=== PATIENT | male | born 1955 | race Caucasian/White ===

== ENCOUNTER 2025-01-13 02:47 | Day surgery (SDC) | payer MEDICARE, OTHER, SELFPAY ==
[2024-12-29 12:26] VITALS: BMI 28.1
--- NOTE | 2024-12-29 12:51 | PC.NURSE ---
Report to the Outpatient Waiting Room, entrance under the green pavilion located off [facility], at time ___10:00AM____ on date ____01/13/25___. Planned Procedure Time: ___12:00PM .? Time changes happen often and if your time is changed the preop area will call you the afternoon before. - You and your visitor will be asked to self-screen and do not enter if you have any COVID symptoms. Please call surgeon if you need to reschedule. - A mask is optional within the hospital at this time. Patients may have clear liquids (water, carbonated beverages, clear teas, apple juice) until 3 hours prior to surgery (9:00AM) with a maximum of 20 ounces. - No food from midnight until time of surgery and no smoking, or chewing tobacco (or any form of nicotine). No chewing gum, candy or mints. Take only the following medications with a SIP of water on the morning of surgery: ___LEVOTHYROXINE, SELEGILINE, BACTRIM DO NOT STOP ANY OF YOUR OTHER PRESCRIPTION MEDICATIONS PRIOR TO SURGERY EXCEPT THE FOLLOWING Hold all vitamins and supplements for 3 days per anesthesiologist.- LAST DOSE 01/09/25. Please no make-up, nail luxembourgish, hairspray, perfume, deodorant, or body powder the day of surgery.? No jewelry (including any body piercings) or valuables the day of surgery, leave them at home.? Please take a shower or bath the night before, or the morning of, surgery with an antibacterial soap.? Wear comfortable, loose fitting clothing.? - Jewelry must be removed prior to entering the operating room.? Rings and piercings that are not removed may be cut off. - The hospital will not accept responsibility for valuables.? - Please leave all valuables, including medications, at home the day of surgery. If you are going home after surgery, a licensed limb driver must drive you home.? - NO public transportation without another adult if you receive anesthesia. - We recommend that an adult stay with you for 24 hours following discharge. - We also recommend that you do not drive, make important decision, drink alcoholic beverages, or take any drugs that were not prescribed by your health care provider for at least 24 hours after your discharge time. Follow any additional instructions given to you from your surgeon. Telephone instructions given to ____PATIENT and asked if any additional questions and then verbalized understanding. Patient advised to call surgeon office or pre surgery nurse liaison [phone] if any additional questions.
--- NOTE | 2025-01-04 18:46 | P.HP_ITS ---
History of Present Illness History of Present Illness Consent: Risks, benefits, and alternatives have been discussed and questions answered. Patient agrees to proceed with procedure. Chief complaint: bladder stone Narrative: Dion Farooq is a 69 year old male recently evaluated for prostatism and recurrent UTI. CT-scan demonstrated 3 bladder stones up to 1.8c.m Review of Systems Review of Systems: All systems reviewed & are unremarkable except as noted in HPI and below PMFSH Social History Social History Smoking packs per day: 0.25 Smoking cigarettes per day: 5.0 Years smoked: 5 Smoking pack-years: 1.25 Smoking status: Former smoker Tobacco type: cigarettes Smoking end date: 02/22/82 Alcohol intake: current Drinks per week: 2 Living arrangements: with family Additional living arrangements comments: Spiritual care concerns: No Meds Home Medications and Allergies Home Medications ?Medication ?Instructions ?Recorded ?Confirmed ?Type ascorbic acid (vitamin C) 500 mg 500 mg PO DAILY 12/29/24 12/29/24 History capsule,extended release cholecalciferol (vitamin D3) 125 125 mcg PO DAILY 12/29/24 12/29/24 History mcg (5,000 unit) capsule cyanocobalamin (vitamin B-12) 500 500 mcg PO DAILY 12/29/24 12/29/24 History mcg tablet levothyroxine 150 mcg tablet 150 mcg PO QAM 12/29/24 12/29/24 History multivitamin (Daily Multi-Vitamin 1 tablet PO DAILY 12/29/24 12/29/24 History tablet) selegiline HCl 5 mg capsule 5 mg PO BID 12/29/24 12/29/24 History sulfamethoxazole 800 1 tablet PO Q12H 12/29/24 12/29/24 History mg-trimethoprim 160 mg tablet tamsulosin 0.4 mg capsule 0.4 mg PO BID 12/29/24 12/29/24 History Allergies Allergy/AdvReac Type Severity Reaction Status Date / Time No Known Allergies Allergy Verified 12/29/24 12:17 Exam Const: General: no acute distress Resp: Effort & Inspection: normal respiratory effort GI: Inspection: non-distended GI Palp: No abdominal tenderness and No Guarding due to palpation present (GI) Auscultation: normal bowel sounds Assessment and Plan Assessment and plan (1) BPH loc w urin obs/LUTS: Code(s): N40.1 - Benign prostatic hyperplasia with lower urinary tract symptoms Status: Acute (2) Bladder stones: Code(s): N21.0 - Calculus in bladder Status: Acute Assessment and Plan: * Cystoscopy, laser lithotripy with bladder stone extraction
[2025-01-13] VITALS (11 sets, daily range): BP systolic 109–130; BP diastolic 66–81; PULSE 55–68; RESP 10–20; TEMP 36.7–36.9; O2SAT 94–100
--- OUTSIDE RECORDS SUMMARY | 2025-01-13 02:50 | XMS_ITS | Clinical Summary ---
Author Organization [facility] Address [address] [place] [address] Care Team Providers Care Sample Preparation Supervisor Name Role Phone Tayo Ross MD Primary Care Provider [phone] Source Comments [facility],non-owned Affiliates and Associated Physician Practices is amultiple site organization consisting of ambulatory clinics and hospital sitesin [place], [place], [place] and [place]. This disclosure is being madepursuant to the Care Everywhere program and may not contain all information available regarding this patient. Last updated 18.[facility] Allergies No known active allergies Medications * Be aware that medications may not be up to date on this document. Alwaysverify current medications with the patient. tamsulosin (FLOMAX) 0.4 MG capsule Take 0.4 mg by mouth. 7 Active Multiple Vitamin (MULTIVITAMIN+ PO) Active aspirin (ASPIRIN) 81 MG tablet Take 81 mg by mouth once daily Active SHINGRIX 50 MCG/0.5ML SUSR injection PHARMACIST ADMINISTERED IMMUNIZATION ADMINISTERED AT TIME OF DISPENSING 0 9 Active carbidopa-levod opa (SINEMET) 25-100 MG tabletIndicatio ns:Parkinson's Disease Take 1 tablet by mouth 4 times daily Reasons: Parkinson's Disease 360 tablet 3 0 Active amantadine (SYMMETREL) 100 MG capsuleIndicati ons:PD (Parkinson's disease) (HCC) Take 1 capsule by mouth 2 times daily 180 capsule 3 0 Active rasagiline (AZILECT) 1 MG tabletIndicatio ns:PD (Parkinson's disease) ([facility]) Patient to take .5 tablet daily 45 tablet 3 0 Active carbidopa-levod opa CR (SINEMET CR) 50-200 MG tabletIndicatio ns:PD (Parkinson's disease) ([facility]) Take 1 tablet by mouth at bedtime 90 tablet 3 0 Active levothyroxine (SYNTHROID) 137 MCG tablet Take 137 mcg by mouth once daily 1 Active rOPINIRole (REQUIP) 0.5 MG tabletIndicatio ns:RLS (restless legs syndrome),PD (Parkinson's disease) ([facility]) Take 1 (one) tablet by mouth at bedtime 90 tablet 3 1 Active Active Problems Problem Noted Date Diagnosed Date Dyskinesia 02/19/2018 Parkinson's disease 01/21/2017 Immunizations Immunization Administration Dates Next Due Zoster Hzv Vacc Recombinant Inj Im 02/05/2019 Social History Tobacco Use Types Packs/Day Years Used Date Smoking Tobacco: Former Smokeless Tobacco: Never Alcohol Use Standard Drinks/Week Comments Yes 3 (1 standard drink = 0.6 oz pur e alcohol) Occasional beer Sex and Gender Information Value Date Recorded Sex Assigned at Not on file Legal 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 [employer] Gender Identity Not on file Sexual Orientation Not on file Last Filed Vital Signs Vital Sign Reading Time Taken Comments Blood Pressure 112/72 10/12/2020 11:07 AM SUPERVISOR DYER Pulse 81 10/12/2020 11:07 AM SUPERVISOR DYER Temperature 36.4 C (97.5 F) 10/12/2020 11:07 AM SUPERVISOR DYER Respiratory Rate - - Oxygen Saturation 98% 10/12/2020 11:07 AM SUPERVISOR DYER Inhaled Oxygen Concentration - - Weight 78.7 kg (173 lb 9.6 oz) 10/12/2020 11:07 AM SUPERVISOR DYER Height 172.7 cm (5' 8 ) 10/12/2020 11:07 AM SUPERVISOR DYER Body Mass Index 26.4 10/12/2020 11:07 AM SUPERVISOR DYER Plan of Treatment Health Maintenance Due Date Last Done Comments COLOGUARD (AGES 45-75) - COL ON CA SCREENING 1955 COLON MONITORING 1955 COLONOSCOPY - COLON CA SCREENING 1956 CT COLONOGRAPHY - COLON CA SCREENING 1955 Colorectal Cancer Screening 1955 FIT - COLON CA SCREENING 1955 FLEX SIG - COLON CA SCREENING 1955 LIPID TESTING 1955 HEPATITIS C SCREENING 11/05/1974 DTAP/TDAP/TD VACCINES (1 - Tdap) 11/10/1975 PNEUMOCOCCAL VACCINE 50+ (1 of 1 - PCV) 2006 ZOSTER VACCINE (2 of 2) 04/02/2019 02/05/2019 SCREENING FOR DIABETES 10/12/2020 AAA SCREENING 2021 COVID-19 VACCINE (1 - 2023-2 5 season) 2024 DEPRESSION SCREENING 08/25/2024 INFLUENZA VACCINE (Season Ended) 2025 Respiratory Syncytial Virus (RSV) Vaccine Pt: or over 60 yrs (1 - 1-dose 75+ series) 11/10/2031 HEPATITIS B VACCINE Aged Out No longe r eligible based on patient's age to complete this topic HIB VACCINE Aged Out No longer eligi ble based on patient's age to complete this topic HPV VACCINE Aged Out No longer eligi ble based on patient's age to complete this topic MENINGOCOCCAL (Group B) VACC INE SHARED DECISION-MAKING Aged Out No longer eligibl e based on patient's age to complete this topic MENINGOCOCCAL GROUPS A/C/Y/W VACCINE Aged Out No longer eligible b ased on patient's age to complete this topic Care Teams Sample Preparation Supervisor Relationship Specialty Start Date End Date Tayo Ross MD [address] [place] [address] PCP - General 12/20/16
--- OUTSIDE RECORDS SUMMARY | 2025-01-13 02:51 | XMS_ITS | Patient Health Record ---
Author Organization [facility] dicine Address [address] [place] [address] Care Team Providers Care Refrigerator Repair Technician Name Role Phone Dr. Leonid Ross Primary Care Provider [phone] Manuel Nair Unavailable [phone] Bindu Eastman Unavailable [phone] Migration, Provider Unavailable Unavailable Allergies No Known Allergies Results Component Value Reference Range Notes PSA, Diagnostic Reviewed date:05/13/2024 12:00:00 AM Interpretation: Performing Lab: Notes/Report: PSA Total 4.84 ng/mL T4 Free Reviewed date:05/13/2024 12:00:00 AM Interpretation: Performing Lab: Notes/Report: T4 Free 1.00 ng/dL Thyroid Stimulating Hormone Reviewed date:05/13/2024 12:00:00 AM Interpretation: Performing Lab: Notes/Report: TSH 4.08 mcIU/mL Patient Health Questionnaire (PHQ9) Reviewed date:05/12/2024 12:00:00 AM Interpretation: Performing Lab: Notes/Report: Feeling bad about yourself or that you are a failure or have let yourself or your family down 0 Feeling down, depressed, or hopeless 0 Feeling tired or having little energy 1 If you checked off any problems, how difficult Not difficult at all have these problems made it for you to do your work, take care of things at home, or get along with other people? 0 Little interest or pleasure in doing things 0 Moving or speaking so slowly that other people could have noticed or the opposite being so figety or restless that you have been moving around a lot more than usual 0 Poor appetite or overeating 0 Thoughts that you would be better off , or of hurting yourself 0 Trouble concentrating on things, such as reading the newspaper or watching television 0 Trouble falling or staying asleep, or sleeping too much 0 AUDIT-C Reviewed date:05/12/2024 12:00:00 AM Interpretation: Performing Lab: Notes/Report: How many standard drinks containing alcohol do you have on a typical day? 1 or 2 drinks How often do you have 6 or more drinks on 1 occasion Never How often do you have a drink containing alcohol Monthly or less Total Score 1 Urine Culture Reviewed date:04/05/2024 12:00:00 AM Interpretation: Performing Lab: Notes/Report: C Urine See Below Testosterone Total Reviewed date:05/13/2024 12:00:00 AM Interpretation: Performing Lab: Notes/Report: TESTOSTERONE TOTAL 343.1 ng/dL Lipid Panel {Chol, Trig, HDL , LDL} Reviewed date:05/13/2024 12:00:00 AM Interpretation: Performing Lab: Notes/Report: Chol/HDL 4 Cholesterol Total 184 mg/dL Coronary Risk 24 % HDL 45 mg/dL LDL 99 mg/dL NON HDL CHOLESTEROL 139 mg/dL Triglycerides 200 mg/dL Comprehensive Metabolic Pane l Reviewed date:05/13/2024 12:00:00 AM Interpretation: Performing Lab: Notes/Report: Albumin Lvl 4.4 g/dL Albumin/Globulin Ratio 1.7 Alk Phos 94 unit/L ALT 14 unit/L ANION GAP 5.6 mmol/L AST 16 unit/L Bilirubin Total 0.9 mg/dL BUN 18 mg/dL Calcium Lvl 9.4 mg/dL Chloride Lvl 106 mmol/L CO2 29 mmol/L Creatinine Lvl 1.06 mg/dL eGFR CKD-EPI 77 mL/min/1.73 m2 Glucose Lvl 88 mg/dL Potassium Lvl 4.3 mmol/L Protein Total 7.0 g/dL Sodium Lvl 141 mmol/L CBC w/ Diff Reviewed date:05/13/2024 12:00:00 AM Interpretation: Performing Lab: Notes/Report: Basophil Auto 0.5 % Eos Absolute 0.2 x10*3/mcL Eosinophil Auto 3.3 % Hct 43.7 % Hgb 14.9 g/dL Lymph Absolute 2.2 x10*3/mcL Lymph Auto 33.8 % MCH 33.3 pg MCHC 34.2 g/dL MCV 97.5 fL [place] Absolute 0.4 x10*3/mcL [place] Auto 6.5 % MPV 9.9 fL Neutro Absolute 3.7 x10*3/mcL Neutro Auto 55.9 % Platelets 203 K/mcL RBC 4.48 x10*6/mcL RDW 12.3 % WBC 6.6 K/mcL Thyroid Stimulating Hormone Reviewed date:11/03/2024 02:33:10 PM Interpretation: Performing Lab: Notes/Report: Test Performed by: [address] [address] [employer] Lecturer: Herminio Duvall DO TSH 1.76 0.45-5.33 mcIU/mL CBC w Auto Diff Reviewed date:11/03/2024 02:33:10 PM Interpretation: Performing Lab: Notes/Report: Test Performed by: [address] [id number] [employer] Lecturer: Herminio Duvall DO WBC 4.9 4.0-11.7 K/mcL RBC 4.61 4.28-5.56 x10*6/mcL Hgb 15.2 13.0-17.0 g/dL Hct 43.9 38.1-48.9 % MCV 95.3 83.4-98.1 fL MCH 33.0 27.0-34.2 pg MCHC 34.6 31.8-35.3 g/dL RDW 12.9 12.0-16.4 % Platelets 236 149-393 K/mcL MPV 9.4 7.0-11.0 fL Neutro Auto 51.6 45.3-79.0 % Lymph Auto 38.2 11.8-45.9 % [place] Auto 7.1 4.4-12.0 % Eosinophil Auto 2.3 0.0-6.3 % Basophil Auto 0.8 0.2-1.6 % Neutro Absolute 2.5 2.4-8.4 x10*3/mcL Lymph Absolute 1.9 0.8-3.7 x10*3/mcL [place] Absolute 0.3 0.3-1.1 x10*3/mcL Eos Absolute 0.1 0.0-0.5 x10*3/mcL Vitamin B12 Reviewed date:11/03/2024 02:33:10 PM Interpretation: Performing Lab: Notes/Report: Test Performed by: [address] [place] [address] [employer] Lecturer: Herminio Duvall DO Vitamin B12 Lvl 776 180-914 pg/mL Vitamin B12 Interpretation: Normal Range: 180-914 pg/mL Indeterminate: 140-180 pg/mL Deficient: <140 pg/mL Comprehensive Metabolic Pane l Reviewed date:11/03/2024 02:33:10 PM Interpretation: Performing Lab: Notes/Report: Test Performed by: Lorraine Jason [place] [id number] [employer] Lecturer: Herminio Duvall DO Glucose Lvl 98 74-109 mg/dL ADA risk stratification for diabetes <100 mg/dL = Normal 100-125 mg/dL = Increased risk for future diabetes >=126 mg/dL = Diabetes, if on more than one testing occasion BUN 18 7-25 mg/dL Creatinine Lvl 0.87 0.70-1.30 mg/dL eGFR CKD-EPI >90 >=90 mL/min/1.73 m2 The CKD-EPI equation is validated in individuals 18 years of age and older. It is less accurate in patients with extremes of muscle mass, restriction of dietary protein, ingestion of creatine, extra-renal metabolism of creatinine, or treatment with medications that affect renal tubular creatinine secretion. GFR Categories in Chronic Kidney Disease (CKD) GFR GFR (mL/min/1.73 Category: square meters): Interpretation: G1 90 or greater Normal or high* G2 60-89 Mild decrease* G3a 45-59 Mild to moderate decrease G3b 30-44 Moderate to severe decrease G4 15-29 Severe decrease G5 14 or less Kidney failure *In the absence of evidence of kidney damage, neither GFR category G1 nor G2 fulfill the criteria for CKD (Kidney Int Suppl 2013;3:1-150) Calcium Lvl 9.1 8.6-10.3 mg/dL Sodium Lvl 140 136-145 mmol/L Potassium Lvl 4.4 3.5-5.1 mmol/L Chloride Lvl 105 98-107 mmol/L CO2 28 21-31 mmol/L Anion Gap 6.5 <=16.0 mmol/L Alk Phos 81 34-104 unit/L Bilirubin Total 0.6 0.3-1.0 mg/dL Albumin Lvl 4.2 3.5-5.2 g/dL Protein Total 6.6 6.4-8.9 g/dL Albumin/Globulin Ratio 1.8 1.1-2.5 ALT 13 7-52 unit/L AST 14 13-39 unit/L T4 Free Reviewed date:11/03/2024 02:33:10 PM Interpretation: Performing Lab: Notes/Report: Test Performed by: [place] [address] [employer] Lecturer: Herminio Duvall DO T4 Free 1.13 0.60-1.70 ng/dL Vitamin D 25 Hydroxy Reviewed date:11/03/2024 02:33:10 PM Interpretation: Performing Lab: Notes/Report: Test Performed by: [place] [address] [employer] Lecturer: Herminio Duvall DO Vitamin D 25 OH 70 30-100 ng/mL Vitamin D25 Interpretation: Deficient: <= 20 ng/mL Insufficient: 21-29 ng/mL Sufficient: 30-100 ng/mL Upper Safety Limit: >100 ng/mL Erythrocyte Sedimentation Ra te Reviewed date:11/10/2024 08:07:37 AM Interpretation: Performing Lab: Notes/Report: Test Performed by: [place] [address] [employer] Lecturer: Herminio Duvall DO ESR, Westergren 2 0-20 mm/hr C-Reactive Protein Reviewed date:11/10/2024 08:07:37 AM Interpretation: Performing Lab: Notes/Report: add on Test Performed by: [place] [address] [employer] Lecturer: Herminio Duvall DO CRP <0.1 0.0-1.0 mg/dL Reason For Referral Reason referral to urology- closest location possible. Diagnosis 1 Benign prostatic hyp erplasia with lower urinary tract symptoms, symptom details unspecified (N40.1) Referral Organization [facility] Referring Provider First Name Bindu Referring Provider Last Name Jaren Referring Provider Speciality Nurse Prac titioner Referred Provider Specialty Urology General Notes Kandis Smith 1 10/21/2023 02:32:30 PM MEDICAL PSYCHOTHERAPIST >Faxed referral to Urology of [facility] [phone], Kristy Feldman 09/14/2024 09:20:59 AM MEDICAL PSYCHOTHERAPIST >Called to f/u and spoke with concierge receptionist. Stated they had the referral and their staff had reached out once with a disconnection, but no new attempt. Inquired what phone number they were using and she couldn't find the number and stated they might be working on an old number from previous visits in 2018. Updated with home number and cell phone number. They stated they would attempt to reach out again today. Attempted to call Manfred and no answer. Attempted home number, disconnected. Called Mita and updated her. V/u stated that they didn't have good luck with Luis. Updated that there are other providers that she can request. v/u. Given phone number to call if Manfred doesn't hear from them today. P: [phone].Nelson Brooke 11/11/2024 09:03:46 AM CDT >Pt is seeing urology in November Referral Priority Routine Referral Appointment Date 08/08/2024 Medications Medication SIG (Take, Route, Frequency, Duration) Notes Start Date End Date Status Sertraline HCl 25 MG Tablet 1 tablet Orally Once a day managed by [facility] neuro Active Finasteride 5 MG Tablet 1 tablet Orally Once a day Unknown Carbidopa-Levodopa 25-100 MG Tablet 1 Oral twice a day; Duration: 30 days managed by [facility] neuro managed by [facility] neuro Active Levothyroxine Sodium 150 MCG Tablet 1 tablet in the morning on an empty stomach Orally Once a day; Duration: 90 days Unknown Multivitamin oral; Duration: 0 *Pick strength-form from [facility] for eRX* 01/16/2021 Unknown Selegiline HCl 5 MG Tablet 1 tablet with breakfast and lunch Orally Twice a day Unknown Tamsulosin HCl 0.4 MG Capsule 1 capsule Orally twice a day; Duration: 30 days Unknown Immunizations Vaccine Route Administration Date Status Comme nts Zoster IM Intramuscular 02/05/2019 Administered Source VFC Code: : Zoster IM Intramuscular 05/04/2019 Administered Source VFC Code: : Tdap IM Intramuscular 02/16/2018 Administered Source VFC Code: : RSV-MAb (Respiratory syncytial virus immune globulin) IM Intramuscular 05/12/2024 Administered ,sourcename : New immunization record ,immstatus : Complete Moderna Covid-19 Vaccine 1st dose Unknown 11/08/2020 Administered ,sourcename : New immunization record Source VFC Code: : Moderna Covid-19 Vaccine 1st dose Unknown 12/09/2020 Administered ,sourcename : New immunization record Source VFC Code: : Moderna Covid-19 Vaccine 1st dose Unknown 07/24/2021 Administered Source VFC Code: : Modernmorgan Covid-19 Vaccine 1st dose Unknown 12/17/2021 Administered Source VFC Code: : Influenza, high-dose seasonal, quadrivalent, preservative free >65 yrs IM Intramuscular 06/06/2023 Administered ,sourcename : N ew immunization record ,immstatus : Complete Social History Social History Additional Details Category Social Info Options Details Migrated Social History Migrated Social History Tobacco history:Never smoker Problems Problem Type SNOMED Code ICD Code Onset Dates Problem Status W/U Status Risk Notes Problem Suspected disease caused by Severe acute respiratory coronavirus 2 (situation) (786189072) Encounter for screening for COVID-19 (Z11.52) 022 Problem resolved confirmed Problem Closed fracture of acromial end of clavicle (8698837) Displaced fracture of lateral end of right clavicle, initial encounter for closed fracture (S42.031A) 023 Problem resolved confirmed Problem Xerosis cutis (22965515) Xerosis cutis (L85.3) 017 Problem resolved confirmed Problem Acute upper respiratory infection (50899786) Acute upper respiratory infection, unspecified (J06.9) 017 Problem resolved confirmed Problem Prostatitis (2355144) Unspecified prostatitis (601.9) 016 Problem resolved confirmed Problem Acute bronchitis (19749456) Acute bronchitis (466.0) 017 Problem resolved confirmed Problem Acute sinusitis (disorder) (50806686) Other acute sinusitis (461.8) 017 Problem resolved confirmed Problem Otorrhea (10663940) Unspecified otorrhea (388.60) 017 Problem resolved confirmed Problem Hyperlipidemia (60497885) Other and unspecified hyperlipidemia (272.4) 016 Problem resolved confirmed Problem Neoplasm of uncertain behavior of skin (73103144) Neoplasm of uncertain behavior of skin (238.2) 019 Problem resolved confirmed Problem Dermatophytosis of nail (671679091) Dermatophytosis of nail (110.1) 017 Problem resolved confirmed Problem Body mass index 25-29 - overweight (040457611) Body mass index (BMI) 28.0-28.9, adult (Z68.28) Active confirmed Problem Elevated PSA (752813618) Elevated prostate specific antigen [PSA] (R97.20) Active confirmed Problem Difficulty passing urine (135412624) Other difficulties with micturition (R39.198) Active confirmed Problem Vaccination given (914457177) Encounter for immunization (Z23) Active confirmed Problem Adult health examination (699475278) Encounter for general adult medical examination without abnormal findings (Z00.00) Active confirmed Problem Urinary tract infectious disease (disorder) (29852427) Urinary tract infection, site not specified (N39.0) Active confirmed Problem Arthralgia of the ankle and/or foot (520574491) Pain in left ankle and joints of left foot (M25.572) Active confirmed Problem Cholelithiasis without obstruction (20342589) Calculus of gallbladder without cholecystitis without obstruction (K80.20) Active confirmed Problem Diverticula of intestine (22790396) Diverticulosis of intestine, part unspecified, without perforation or abscess without bleeding (K57.90) Active confirmed Problem Parkinson's disease (19691444) Parkinson's disease (G20) Active confirmed Problem Hypothyroidism (16304572) Hypothyroidism, unspecified (E03.9) Active confirmed Problem Leukopenia (45785005) Decreased white blood cell count, unspecified (D72.819) Active confirmed Problem Lower urinary tract symptoms due to benign prostatic hypertrophy (78469848299415) Benign prostatic hyperplasia with lower urinary tract symptoms, symptom details unspecified (N40.1) Active confirmed Problem Benign prostatic hypertrophy without outflow obstruction (544417260) Benign prostatic hyperplasia without lower urinary tract symptoms (N40.0) Active confirmed Problem Acute prostatitis (79533460) Acute prostatitis (N41.0) Active confirmed Problem Nicotine dependence (26652050) Personal history of nicotine dependence (Z87.891) 022 Problem resolved confirmed Problem Viral screening (576810115) Encounter for screening for other viral diseases (Z11.59) 022 Problem resolved confirmed Problem History and physical examination, follow-up (477513498) Encounter for follow-up examination after completed treatment for conditions other than malignant neoplasm (Z09) 023 Problem resolved confirmed Problem Other specified symptoms and signs involving the circulatory and respiratory systems (R09.89) 017 Problem resolved confirmed Problem Low back pain (890596963) Low back pain (M54.5) 021 Problem resolved confirmed Problem Pain of right knee region (finding) (185211293817675) Pain in right knee (M25.561) 017 Problem resolved confirmed Problem Seborrheic dermatitis (96140477) Other seborrheic dermatitis (L21.8) 017 Problem resolved confirmed Problem Acute bronchitis (13247598) Acute bronchitis, unspecified (J20.9) 017 Problem resolved confirmed Problem Acute pansinusitis (4996193) Acute pansinusitis, unspecified (J01.40) 017 Problem resolved confirmed Problem Mixed hyperlipidemia (022495759) Mixed hyperlipidemia (E78.2) 016 Problem resolved confirmed Problem Neoplasm of uncertain behavior of skin (57534225) Neoplasm of uncertain behavior of skin (D48.5) 019 Problem resolved confirmed Problem Tinea unguium (201029699) Tinea unguium (B35.1) 017 Problem resolved confirmed Problem Vaccine product containing only acellular Bordetella pertussis and Clostridium tetani and Corynebacterium diphtheriae antigens (medicinal product) (294499311) Diphtheria-tetanus- pertussis, combined [DTP] [DtaP] (V06.1) 018 Problem resolved confirmed Problem Requires varicella vaccination (finding) (220611250) Need for prophylactic vaccination and inoculation against varicella (V05.4) 019 Problem resolved confirmed Problem Pneumococcal conjugate vaccination (376708808517670) Need for prophylactic vaccination against streptococcus pneumoniae (pneumococcus) (V03.82) 019 Problem resolved confirmed Problem Cough (30690783) Cough (786.2) Problem resolved confirmed Problem Seborrheic dermatitis (33681442) Other seborrheic dermatitis (690.18) Problem resolved confirmed Problem Body mass index 30.00 to 34.99 (264848327434815) Body mass index (BMI) 31.0-31.9, adult (Z68.31) Active confirmed Problem Chronic cough (81721310) Chronic cough (R05.3) Active confirmed Problem Lipid screening (362415098) Encounter for screening for lipoid disorders (Z13.220) Active confirmed Problem Pre-procedure evaluation check (338760641) Encounter for other preprocedural examination (Z01.818) Active confirmed Problem Problem, abnormal examination (49400251) Encounter for general adult medical examination with abnormal findings (Z00.01) Active confirmed Problem Other mechanical complication of other internal orthopedic devices, implants and grafts, initial encounter (T84.498A) Active confirmed Problem Motion sickness (87235296) Motion sickness, initial encounter (T75.3XXA) Active confirmed Problem Sprain of ankle (57520218) Sprain of unspecified ligament of left ankle, initial encounter (S93.402A) Active confirmed Problem Electrocardiogram abnormal (717950028) Abnormal electrocardiogram [ECG] [EKG] (R94.31) Active confirmed Problem Hematuria (82777582) Hematuria, unspecified (R31.9) Active confirmed Problem Flatulence, eructation and gas pain (409824729) Abdominal distension (gaseous) (R14.0) Active confirmed Problem Abdominal pain (67900407) Unspecified abdominal pain (R10.9) Active confirmed Problem Pleurodynia (4307122) Pleurodynia (R07.81) Active confirmed Problem Erectile dysfunction (disorder) (520228147) Male erectile dysfunction, unspecified (N52.9) 022 Active confirmed Problem Prostatitis (7148911) Inflammatory disease of prostate, unspecified (N41.9) 024 Active confirmed Problem Constipation (63460529) Constipation, unspecified (K59.00) 021 Active confirmed Problem Sepsis due to unspecified staphylococcus (A41.2) 023 Active confirmed Problem Abnormal chest sounds (41569136695605) Abnormal chest sounds (786.7) 017 Problem resolved confirmed Problem Body mass index 25-29 - overweight (860262506) Body mass index (BMI) 27.0-27.9, adult (Z68.27) 023 Active confirmed Problem Cough (finding) (64597625) Cough, unspecified (R05.9) 023 Active confirmed Problem Acne scars - mixed atrophic and hypertrophic (804710388) Other specified hypertrophic and atrophic condition of skin (701.8) 017 Problem resolved confirmed Vital Signs Heart Rate 81 /min 11/02/2024 Temperature 97.9 degrees Fahrenheit 11/02/2024 Respiratory Rate 16 /min 07/02/2024 Height-cm 165.1 cm 11/02/2024 Oximetry 97 % 11/02/2024 Blood pressure diastolic 68 mm Hg 11/02/2024 Weight-kg 86.55 kg 11/02/2024 Height 65.00 in 11/02/2024 Blood pressure systolic 118 mm Hg 11/02/2024 Weight 190.8 lbs 11/02/2024 BMI 31.75 kg/m2 11/02/2024 Encounters Encounter Location Date Provider Diagnosis [address] [address] 01/28/2024 Manuel Joanie Calculus of gallbladder without cholecystitis without obstruction K80.20 and Unspecified abdominal pain R10.[address] [address] 03/16/2024 Dr. Leonid Ross Unspecified abdomina l pain R10.[address] [address] 03/30/2024 Provider Migration Urinary tract infection, site not specified N39.0 and Hematuria, unspecified R31.[address] [address] 04/01/2024 Provider Migration Inflammatory disease of prostate, unspecified N41.[address] [address] 04/22/2024 Dr. Leonid Ross [address] [address] 04/23/2024 Provider Migration Parkinson's disease G20 ; Male erectile dysfunction, unspecified N52.9 ; Elevated prostate specific antigen [PSA] R97.20 ; Inflammatory disease of prostate, unspecified N41.9 ; Encounter for screening for lipoid disorders Z13.220 and Hypothyroidism, unspecified E03.[address] [address] 05/03/2024 Dr. Leonid Ross Pleurodynia R07.[address] [address] 05/12/2024 Manuel Nair Elevated prostate specific antigen [PSA] R97.20 ; Encounter for general adult medical examination without abnormal findings Z00.00 ; Hypothyroidism, unspecified E03.9 ; Sepsis due to unspecified staphylococcus A41.2 ; Other mechanical complication of other internal orthopedic devices, implants and grafts, initial encounter T84.498A ; Parkinson's disease G20 and Body mass index (BMI) 31.0-31.9, adult Z68.[address] [address] 07/02/2024 Manuel Nair Inflammatory disease of prostate, unspecified N41.[address] [address] 09/14/2024 Dr. Leonid Ross Superficial laceration T14.8XXA and Benign prostatic hyperplasia with lower urinary tract symptoms, symptom details unspecified N40.[address] [address] 11/02/2024 Manuel Nair Hypothyroidism, unspecified E03.9 ; Parkinson's disease with fluctuating manifestations, unspecified whether dyskinesia present G20.A2 ; Low energy R53.83 ; Other fatigue R53.83 and moth exterminator use of drug Z79.[address] [address] 07/24/2024 Provider Migration [address] [address] 07/25/2024 Provider Migration [address] [address] 08/08/2024 Bindu Jaren Acute prostatitis N41.0 ; Benign prostatic hyperplasia with lower urinary tract symptoms, symptom details unspecified N40.1 and Elevated prostate specific antigen [PSA] R97.[address] [address] 11/03/2024 [facility] Other fatigue R53.[address] [address] 11/03/[address] [address] 11/10/[address] [address] 11/11/2024 Dr. Leonid Ross Assessments Encounter Date Diagnosis (ICD Code) Assessment Notes Treatment Notes Treatment Clinical Notes Section Notes 11/03/2024 Other fatigue (ICD-10 - R53.83) 11/02/2024 Hypothyroidism, unspecified (ICD-10 - E03.9) 09/14/2024 Superficial laceration (ICD-10 - T14.8XXA) 08/08/2024 Acute prostatitis (ICD-10 - N41.0) 11/02/2024 Parkinson's disease with fluctuating manifestations, unspecified whether dyskinesia present (ICD-10 - G20.A2) 08/08/2024 Benign prostatic hyperplasia with lower urinary tract symptoms, symptom details unspecified (ICD-10 - N40.1) 07/02/2024 Inflammatory disease of prostate, unspecified (ICD-10 - N41.9) 05/12/2024 Sepsis due to unspecified staphylococcus (ICD-10 - A41.2) 05/12/2024 Hypothyroidism, unspecified (ICD-10 - E03.9) 05/12/2024 Parkinson's disease (ICD-10 - G20) 05/12/2024 Other mechanical complication of other internal orthopedic devices, implants and grafts, initial encounter (ICD-10 - T84.498A) 05/12/2024 Encounter for general adult medical examination without abnormal findings (ICD-10 - Z00.00) 05/12/2024 Elevated prostate specific antigen [PSA] (ICD-10 - R97.20) 05/12/2024 Body mass index (BMI) 31.0-31.9, adult (ICD-10 - Z68.31) 05/03/2024 Pleurodynia (ICD-10 - R07.81) 04/23/2024 Hypothyroidism, unspecified (ICD-10 - E03.9) 04/23/2024 Parkinson's disease (ICD-10 - G20) 04/23/2024 Inflammatory disease of prostate, unspecified (ICD-10 - N41.9) 04/23/2024 Male erectile dysfunction, unspecified (ICD-10 - N52.9) 04/23/2024 Encounter for screening for lipoid disorders (ICD-10 - Z13.220) 04/23/2024 Elevated prostate specific antigen [PSA] (ICD-10 - R97.20) 04/01/2024 Inflammatory disease of prostate, unspecified (ICD-10 - N41.9) 03/30/2024 Urinary tract infection, site not specified (ICD-10 - N39.0) 03/30/2024 Hematuria, unspecified (ICD-10 - R31.9) 03/16/2024 Unspecified abdominal pain (ICD-10 - R10.9) 01/28/2024 Calculus of gallbladder without cholecystitis without obstruction (ICD-10 - K80.20) 01/28/2024 Unspecified abdominal pain (ICD-10 - R10.9) 11/02/2024 Low energy (ICD-10 - R53.83) 09/14/2024 Benign prostatic hyperplasia with lower urinary tract symptoms, symptom details unspecified (ICD-10 - N40.1) 08/08/2024 Elevated prostate specific antigen [PSA] (ICD-10 - R97.20) 11/02/2024 Other fatigue (ICD-10 - R53.83) Checking labs like vit D and B12 for deficiency causing the fatigue but concern that it could be progression of parkinsons. Will discuss further based on eval by neuro and labs completed today. Checking TSH. Neuro to evaluate for progression of parkinsons and effectiveness of DBS. Sleep study not indicated at this time. I do not recommend modafinil at this time but may consider based on further evaluation. 11/02/2024 FDC use of drug (ICD-10 - Z79.899) Plan Of Treatment Pending Test Test Name Order Date Vitamin B12 11/02/2024 Thyroxine (T4) Free, Direct, S 5 TSH 11/02/2024 CBC With Differential/Platelet 5 Vitamin D, 25-Hydroxy 11/02/2024 Comp. Metabolic Panel (14) 11/02/2024 C-Reactive Protein 11/03/2024 Erythrocyte Sedimentation Rate 5 Next Appt Details Provider Name:Manuel Rhodes [facility], 05/17/2025 01:30:00 PM, [address] [facility], [place], [address], [phone] Insurance Providers Payer Name Payer Address Payer Phone Subscriber Number Group Number Insured Name Patient Relationship to Insured Coverage Start Date Coverage End Date NGS Medicare RHC [address] [place] [address] [id number] Dion Palacios Self - patient is the insured 2 [facility] [address] [facility] [address] [id number] Dion Palacios Self - patient is the insured 2 NGS Medicare B [address] [place] [address] [id number] Dion Palacios Self - patient is the insured 2 Medical (General) History Surgical History Surgery Date(Month/Year) Cardiovascular stress test u sing maximal or submaximal treadmill or bicycle exercise, continuous edel 12/22/2015 Colonoscopy ,notes : rectal poylp remove d repeat 3-5 years 01/28/2012 Cystoscopy ,notes : Dr. Arellano 05/31/20 22 [email or web address] ,notes : [place] roscopic farhat with cholangiogram. Post op dx: chronic calculous cholecystitis. Completed by Dr. Hicks. 02/05/24
--- OUTSIDE RECORDS SUMMARY | 2025-01-13 02:52 | XMS_ITS | Data Portability ---
Author Organization [place] [facility] Address [address] [place] [address] Care Team Providers Care Cryptographic Clerk Name Role Phone ANGEL SINCLAIR Primary Care Provider Assessment No assessment recorded. Plan of Treatment Reminders Order Date Submit Date Provider Last Modified By Organization Details Last Modified Time Details Appointments None recorded. Lab None recorded. Referral occupation al therapist referral - [facility] for strengthen ing exercises 2022 023 [facility] Physical Therapy[address] , [place], [address], 3 09:30:33 occupation al therapist referral 2022 023 [facility] Physical [address] , [place], [address], 3 09:35:17 Procedures None recorded. Surgeries None recorded. Imaging None recorded. Medication Orders None recorded. Patient TargetsNo targets recorded. Patient Instructions Encounter Date Encounter Id Patient Instructions Last Modified By Organization Details Last Modified Time 07/24/2022 [id number] I discussed with Dion and his that if this fracture remains in the position it is in, I do not see a need for surgical intervention. I want him to use the sling for comfort as well as protection when out in public. I did express to him that I do want him to start coming out of the sling and working on very gentle motion of the wrist and elbow. He will need to be very careful over the next couple of months while this bone is knitting together as there is not anyway to place a cast. He was shown how to do exercises in clinic today. He can eat and drink with this arm but no weight in this extremity more than a drink or utensils. He voices understanding. He was given hydrocodone at the ER but it made him feel funny so he has just been taking OTC Tylenol with benefit. Sleeping in a recliner may be more comfortable for him at first as well. This will keep him from rolling over on this side. He can ice as needed to help with any swelling. He understands that it will be a couple of months before this bone has formed a good amount of callus. It will be two to three months before he is able to return to overhead type activities. I will see him back in approximately six weeks with repeat radiographs. He is asking about returning to a boxing bag program but I have informed him this will be approximately three months out before being able to wean back into that activity. [email or web address] Not available 07/24/2022 09:32:50 09/04/2022 [id number] I discussed with Dion that he is doing well following his fracture. I want him to start some formal physical therapy working on range of motion exercises. He said he wants to do this at [facility] here in [place] so I will fax the order over to them. I would like to see some more healing changes on the x-rays before we add any strengthening so I want to see him back in 6 weeks to check another set of images as well as see how he is doing with his range of motion. At that point if he is progressing well we can add some strengthening. He was instructed to call with any questions or concerns. He voiced understanding and agreed with this plan of care. Patient was seen by Gonzales Segundo NP, and the diagnoses, problems and treatment plan for the patient has been reviewed and approved by me, Dr. Elder Garcia. Not available 09/06/2022 09:30:57 10/16/2022 [id number] I discussed with Dion and his that he is doing well following his clavicle fracture. He has improved since his last visit by attending PT and working on exercises at home. At this point he is ready to do some strengthening, so I will send an order for therapy to do a HEP to show him the exercises he can do for this. I am going to release him to activities as tolerated, letting pain be his guide. I told him that as he starts using that arm more, he can take OTC pain medication as needed as well as use ice. I am going to follow up with him on a PRN basis. He was instructed to call with any questions or concerns. He voiced understanding and agreed with this plan of care. Patient was seen by Gonzales Segundo NP, and the diagnoses, problems and treatment plan for the patient has been reviewed and approved by me, Dr. Elder Garcia. Not available 10/16/2022 10:07:50 Reason for Referral Occupational Therapist Refer ral for Closed fracture of acromial end of right clavicle Referring Physician: Elder Garcia, Orthopedic Surgery, Encounter Date: 09/04/2022 Occupational Therapist Refer ral for Closed fracture of acromial end of clavicle HEP for strengthening exercises Referring Physician: Elder Garcia, Orthopedic Surgery, Encounter Date: 10/16/2022 Results Created Date Observation Date Name Description Value Unit Range Abnormal Flag Note LastModifiedBy Organization Detail LastModifiedTime 09/04/19 23 09/04/2022 XR, clavi tam No observ ation record ed. [email or web address] [address] [place], [address], 09/04/2022 18:36:30 10/16/19 23 10/16/2022 XR, clavi tam No observ ation record ed. [email or web address] [address] [place], [address], 10/17/2022 15:37:39 Result Notes None recorded. Problems Name Problem SNOMED Code Status Onset Date Resolution Date Notes Provider Name and Address Organization Details Recorded Time Parkinson 's disease 95182380 Active 2021 javi damon null, [place] - [facility] 2 13:08:48 Closed fracture of acromial end of right clavicle 933247362215965 06 Active 2021 Cinthia Merida null, [place] - [facility] 2 09:25:57 Clavicle pain 995296309 Active 2021 Cinthia Merida [place], [place] [facility] 2 09:26:23 Closed fracture of acromial end of clavicle 6330907 Active 2022 GONZALES SEGUNDO, ELECTROSTATIC PAINTER [address] [facility] [place], [address], [place] [facility] 09:29:09 Problem Notes None recorded. Procedures Surgical History Date Name Laterality Status Provider Name and Address Organization Details Recorded Time deep brain stimulation completed javi damon [place] [facility] 07/23/2022 13:12:48 Imaging Results Imaging Date Name Status LastModified by Organiz ation Details LastModified Time 09/04/2022 XR, clavicle completed [email or web address] [facility] [address], [place], [address], 09/04/2022 18:36:30 10/16/2022 XR, clavicle completed [email or web address] [facility] [address], [place], [address], 10/17/2022 15:37:39 Procedure Notes None recorded. Medical Equipment None Reported. Allergies No known drug allergies Medications Name Sig Start Date Stop Date Status Note LastModified by Organization Details LastModified Time levothyroxine 137 mcg tablet TAKE 1 TABLET BY MOUTH IN THE MORNING active Not Available Not Available No t Available hydrocodone 5 mg-acetaminop hen 325 mg tablet TAKE 1 TABLET BY MOUTH EVERY 6 HOURS NEEDED FOR PAIN active not taking Not Available Not Available Not Available carbidopa ER 50 mg-levodopa 200 mg tablet,extend ed release TAKE 1 TABLET BY MOUTH TWICE DAILY active Not Available Not Available No t Available ciprofloxacin 250 mg tablet active not taking Not Available Not Available Not Available amantadine HCl 100 mg capsule active not taking Not Available Not Available Not Available ketorolac 0.5 % eye drops active not taking Not Available Not Available Not Available entacapone 200 mg tablet TAKE 1 TABLET BY MOUTH 4 TIMES DAILY NEEDED active not taking Not Available Not Available Not Available prednisolone acetate 1 % eye drops,suspens ion active not taking Not Available Not Available Not Available tamsulosin 0.4 mg capsule active Not Available Not Available Not Available ciprofloxacin 0.3 % eye drops active NOT TAKING Not Available Not Available Not Available carbidopa 25 mg-levodopa 100 mg tablet TAKE 1 TABLET BY MOUTH 4 TIMES DAILY. FIFTH DOSE DAILY NEEDED active TID Not Available Not Available No t Available tadalafil 5 mg tablet active Not Available Not Available No t Available Myrbetriq 50 mg tablet,extend ed release active not taking Not Available Not Available Not Available Vitals Date Recorded Body height Body mass index (BMI) Body weight Heart rate Systolic blood pressure Diastolic blood pressure Provider Name and Address Organization Details Last Updated DateTime 2 172.72 cm 27 kg/m2 09859 g 78 /min 114 mm[Hg] 62 mm[Hg] Ericka Kaur [place] [facility] 09:02:17 Date Recorded Body height Body mass index (BMI) Body weight Heart rate Systolic blood pressure Diastolic blood pressure Provider Name and Address Organization Details Last Updated DateTime 3 172.72 cm 26.6 kg/m2 53165.6 6 g 73 /min 100 mm[Hg] 66 mm[Hg] Cinthia Merida [place] [facility] 3 09:09:08 Date Recorded Body height Body mass index (BMI) Body weight Heart rate Systolic blood pressure Diastolic blood pressure Provider Name and Address Organization Details Last Updated DateTime 3 172.72 cm 27.9 kg/m2 51641.8 4 g 72 /min 120 mm[Hg] 72 mm[Hg] Ericka Kaur [place] [facility] 3 08:56:35 Social History Question Answer Notes LastModified by Organizat ion Details LastModified Time Tobacco Smoking Status Never Smoker javi dickinson [place] [facility] 07/23/2022 13:12:19 Do You Have An Advance Directive? No [email or web address] Information n ot available 07/23/2022 Are You Blind Or Do You Have Difficulty Seeing? No Information n ot available 07/23/2022 Is Blood Transfusion Acceptable In An Emergency? Yes Information not available 07/23/2022 What Is Your Level Of Caffeine Consumption? Moderate [email or web address] Information not available 07/23/2022 In The 14 Days Before Symptom Onset, Have You Had Close Contact With A Laboratory-confirm ed COVID-19 While That Case Was Ill? No [email or web address] Information n ot available 07/23/2022 In The 14 Days Before Symptom Onset, Have You Had Close Contact With A Person Who Is Under Investigation For COVID-19 While That Person Was Ill? No [email or web address] Information not available 07/23/2022 Have You Been To An Area Known To Be High Risk For COVID-19? No [email or web address] Information not available 07/23/2022 Are You Deaf Or Do You Have Serious Difficulty Hearing? No [email or web address] Information not available 07/23/2022 What Type Of Diet Are You Following? REGULAR Information n ot available 07/23/2022 Have You Processed Blood Or Body Fluids From An Ebola Virus Disease Patient Without Appropriate PPE? No [email or web address] Information not available 07/23/2022 Do You Reside In Or Have You Traveled To An Area Where Ebola Virus Transmission Is Active? No [email or web address] Information not available 07/23/2022 What Is The Highest Grade Or Level Of School You Have Completed Or The Highest Degree You Have Received? [id number] Information not available 07/23/2022 Who Is Your Employer? [employer] Information not available 07/23/2022 How Many Days Of Moderate To Strenuous Exercise, Like A Brisk Walk, Did You Do In The Last 7 Days? 3 Information not available 07/23/2022 Are There Any Guns Present In Your Home? No [email or web address] Information not available 07/23/2022 Which Of Your Hands Is Dominant? Right [email or web address] Information n ot available 07/23/2022 What Is Your Relationship Status? [email or web address] Information not available 07/23/2022 Do You Use Your Seat Belt Or Car Seat Routinely? Yes [email or web address] Information not available 07/23/2022 Are You Sexually Active? No [email or web address] Information not available 07/23/2022 Do You Have Smoke And Carbon Monoxide Detectors In Your Home? Yes [email or web address] Information not available 07/23/2022 What Types Of Sporting Activities Do You Participate In? Boxing [email or web address] Information not available 07/23/2022 Do You Use Sunscreen Routinely? Yes Information not available 07/23/2022 Do You Have Difficulty Walking Or Climbing Stairs? No [email or web address] Information not available 07/23/2022 Sex: Male Functional Status Question Answer Note LastModified by Organizat ion Details LastModified Time Do you use any illicit or recreational drugs? No Information not available 07/23/2022 What is your level of alcohol consumption? Occasional [email or web address] Information not available 07/23/2022 Are you currently employed? Yes [email or web address] Information not available 07/23/2022 Are you able to walk? YESWOREST [email or web address] Information not available 07/23/2022 Do you have difficulty doing errands alone? No [email or web address] Information not available 07/23/2022 Are you able to care for yourself? 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 No [email or web address] Information not available 07/23/2022 What is your exercise level? Moderate [email or web address] Information not available 07/23/2022 Mental Status Question Answer Note LastModified by Organizat ion Details LastModified Time Do you feel stressed (tense, restless, nervous, or anxious, or unable to sleep at night)? AE6073-0 [email or web address] Information not available 07/23/2022 Do you have difficulty concentrating, remembering or making decisions? No [email or web address] Information no t available 07/23/2022 Family History Relationship Description Onset Age of this Age Resolved Age Notes LastModified by Organization Details LastModified Time Father Heart disease [email or web address] Not available 2021 13:09:24 Mother Malignant tumor of breast [email or web address] Not available 2021 13:09:42 Medical History Condition Response Heart Problems N Coronary Artery Disease N Gout N Anxiety/Depression N Blood Transfusion N Hernia N Migraines N Thyroid Problems N COPD N Pacemaker N Anemia N Heart Attack (TN) N Ulcers N Diabetes N Bleeding Disorder N Orthotics N Arthritis N Seizures/Epilepsy N Blood Clot N Tuberculosis N AIDS/HIV N Cancer N Stroke N Asthma N Peripheral Vascular Disease N High Cholesterol N Hepatitis N Liver Disease N Rheumatoid Arthritis N Pulmonary Embolism N Hypertension N Osteoporosis N Kidney Disease N Past Encounters Encounter ID Performer Location Encounter Start Date Encounter Closed Date Diagnosis/Indication Diagnosis SNOMED-CT Code Diagnosis ICD10 Code Diagnosis Note [id number] DO Daniel Serrato [place] [address] [facility] [place] [address] 07/24/2022 08:52:44 07/24/2022 09:35:30 Closed fracture of acromial end of right clavicle 1196618567 9889958 S42.031A Clavicle pain 080929340 M25.511 [id number] Elder Garcia DO Ibrahimll e- [facility] Andrew Hunter [address] [place] [address] 09/04/2022 08:46:16 09/04/2022 09:26:17 Closed fracture of acromial end of right clavicle 9307816194 8023615 S42.031A Closed fra cture of acromial end of clavicle 5209884 S42.031D [id number] Elder Garcia DO Daniel e- [facility] Andrew [address] [place] [address] 10/16/2022 08:48:55 10/16/2022 09:17:27 Closed fracture of acromial end of clavicle 6795670 S42.031D Health Concerns Section Related Observation LastModified by Organization Detai ls LastModified Time None Recorded Concern Status LastModified by Organization Details LastModified Time None Recorded Advance Directives Directive N: Payers Encounter Date Sequence Insurance Name Policy Number Policy Tabares Covered Member ID Tabares Member ID Guarantor Name 07/24/2022 2 [employer] (MEDICARE SUPPLEMENT) Dion Farooq [id number] [facility] 07/24/2022 1 [place] Dion Farooq Jr [id number] [facility] 09/04/2022 2 [employer] (MEDICARE SUPPLEMENT) Dion Farooq [id number] [facility] 09/04/2022 1 [place] Dion Farooq Jr [id number] [facility] 10/16/2022 2 [employer] (MEDICARE SUPPLEMENT) Dion Farooq [id number] [facility] 10/16/2022 1 [place] Dion Farooq Jr [id number] Dion Farooq Notes Date Note Type Note Provider Name and Address Organization Details Recorded Time 07/24/2022 text/html ClavicleReported bypatient.Hand Dominance:right Location:right; anterior Severity:mild Duration:date of onset: (07/20/22) Alleviating factors:ice; limited weight bearing; sling Aggravating factors:lifting; carrying; pushing/pulling; ROM; weightbearing Associated Symptoms:no numbness; no tingling;weakness;swel ling Previous Injections:none Previous PT:none Work Related:christina [place] is here today for a right clavicle fracture. He presents today in a sling. He states he started falling forward on 07/20/22 while playing football trying to catch the ball. He landed on his right side. As he hit the ground he heard and felt a pop in his clavicle area. He did have immediate pain. He presented to the [place] ER where a fracture was noted. He does inform me that he has Parkinson's and has a brain stimulator implanted and in May they decreased his oral medication which started affecting his balance. He believes this helped increase his reason for falling. His ROS is located in the chart and [place] [address] [place], [address], [place] [facility] 07/24/2022 12:10:18 09/04/2022 text/html ClavicleReported bypatient.Hand Dominance:right Location:right; anterior Severity:no pain Duration:date of onset: (07/20/22) Alleviating factors:ice; limited weight bearing Aggravating factors:lifting; carrying; pushing/pulling; ROM; weightbearing Associated Symptoms:no numbness; no tingling;weakness Previous Injections:none Previous PT:none Work Related:christina [place] is here today for follow up of his right clavicle fracture. He says he is doing well today. He says he is not having any pain but he does have decreased range of motion. He has been working on range of motion exercises at home. He has not been taking any pain medicine. He has no new complaints today. GONZALES SEGUNDO APRN [address] [place], [address], [place] [facility] 09/06/2022 09:43:51 10/16/2022 text/html ClavicleReported bypatient.Hand Dominance:right Location:right; anterior Severity:no pain Duration:date of onset: (07/20/22) Alleviating factors:ice; limited weight bearing; PT/OT Associated Symptoms:no numbness; no tingling;weakness Previous Injections:none Previous PT:helped significantly Work Related:christina [place] is here today for follow up of his right clavicle fracture. He says he is doing really good today. He says he is not having any pain and his range of motion has increased since going to physical therapy. He has not been taking any pain medicine. He has no new complaints today. GONZALES SEGUNDO, ELECTROSTATIC PAINTER [address] [place], [address], [facility] - [facility] 10/16/2022 10:09:11
--- NOTE | 2025-01-13 05:55 | WPDHPUPDATE1 ---
History and Physical Update Update Date/Time: 01/13/25 05:55 History and Physical has been reviewed, including an updated exam of the patient. There are NO changes in the patient's condition. Risks, benefits, and alternatives have been discussed and questions answered. Patient agrees to proceed with procedure.
[2025-01-13] MEDS: LACTATED RINGERS 1,000 ML 30 ML IV CONT ×2 (10:20→14:01)
--- NOTE | 2025-01-13 11:25 | P.PNAN_ITS ---
Anes - Initial Pre Proc Eval Procedure: Operation Date: 01/13/25 11:30 Proposed Procedures p Cystoscopy, Laser Lithotripsy Bladder Stone Extraction - Dillon Bailey MD Date/Time: 01/13/25 11:25 Surgeon: Dillon Bailey MD Pre Op Diagnosis: bladder stone Patient Data Age: 69 Gender: M Height: 1.73 m Weight: 84 kg Allergies Allergy/AdvReac Type Severity Reaction Status Date / Time No Known Allergies Allergy Verified 01/13/25 09:46 Home Medications ?Medication ?Instructions ?Recorded ?Confirmed ?Type ascorbic acid (vitamin C) 500 mg 500 mg PO DAILY 12/29/24 01/13/25 History capsule,extended release cholecalciferol (vitamin D3) 125 125 mcg PO DAILY 12/29/24 01/13/25 History mcg (5,000 unit) capsule cyanocobalamin (vitamin B-12) 500 500 mcg PO DAILY 12/29/24 01/13/25 History mcg tablet levothyroxine 150 mcg tablet 150 mcg PO QAM 12/29/24 01/13/25 History multivitamin (Daily Multi-Vitamin 1 tablet PO DAILY 12/29/24 01/13/25 History tablet) selegiline HCl 5 mg capsule 5 mg PO BID 12/29/24 01/13/25 History tamsulosin 0.4 mg capsule 0.4 mg PO BID 12/29/24 01/13/25 History Patient hx anesthesia problems: none Family hx anesthesia problems: none Results Review: All pre-operative results and documents have been reviewed as part of the pre- operative evaluation. [facility] Past Medical History Medical History (Updated 01/13/25 @ 11:28 by Clemente Toney DO) Hypothyroidism Parkinson disease Surgical History Surgical History (Updated 01/13/25 @ 11:28 by Clemente Toney DO) S/P deep brain stimulator placement Social History Social History Smoking packs per day: 0.25 Smoking cigarettes per day: 5.0 Years smoked: 5 Smoking pack-years: 1.25 Smoking status: Former smoker Tobacco type: cigarettes Smoking end date: 02/22/82 Alcohol intake: current Drinks per week: 2 Living arrangements: with family Additional living arrangements comments: Spiritual care concerns: No Anes - Eval Final PreProcedure Day of Procedure 01/13/25 11:25 Patient weight: normal Heart: regular rate and rhythm Lungs: clear to auscultation and normal air movement Airway: Mallampati scale class II Neurological: alert and oriented Last oral intake: >/= 8 hours ASA classification: III Emergent: no Anesthetic plan: proceed Anesthesia type and monitoring: general LMA and standard monitoring Results Review: All pre-operative results and documents have been reviewed as part of the pre- operative evaluation. Informed Consent: The patient's anesthetic plan and its attendant risks and benefits were discussed with the patient/family/POA. Questions were solicited and answers provided to the satisfaction of the patient/family/POA.
[2025-01-13] MEDS: ceFAZolin 2 GM/D5W 50 ML 2 GM/50 ML BAG IVPB (12:45)
[2025-01-13] MEDS: LIDOCAINE 2% GEL UROJET 10 ML PKG MUCOUS MEM (13:10)
--- NOTE | 2025-01-13 14:03 | P.OP_ITS ---
Procedure Note - Detailed Date of Procedure 01/13/25 Pre-op Diagnosis Bladder stones Post-op Diagnosis Same Procedure Performed Cystoscopy, laser lithotripsy with extraction bladder stones Surgeon Dillon Bailey MD Anesthesia General Description of Procedure The patient is brought to the operative suite where he was prepped and draped in a routine sterile fashion while in the dorsal lithotomy position after the uneventful induction of a general anesthetic. A 21F rigid cystoscope was placed in his bladder. He has no urethral strictures but moderate prostatic hyperplasia. He has a small median lobe enlargement with an estimated prostatic urethral length of approximately 2.0cm. He has 3 bladder calculi measuring approximately 1.8-2cm each . Using a 500 micron Jer laser fiber laser these stones are fractured into smaller particles. The particles are evacuated through a 27 F resectoscope sheath using both the [employer] evacuator and by direct extraction with the loop electrode. There is some moderate hematuria determination that procedure and therefore I did place a 22F 3-way catheter with continuous irrigation. The patient was taken to the recovery room having tolerated the procedure well. Packing No Pathology None sent Complications No immediate complications Condition Stable
--- NOTE | 2025-01-13 15:06 | SUR.PHASEI ---
1505 - dr. nicole aware of chest xray results
== END 2025-01-13 16:47 | disposition home or self-care (01) ==
PROVIDERS: PCP Pediatrics; Visit Provider Urology
PROC: (CPT 52352; principal; 2025-01-13 11:30)
DX: N21.0 Calculus in bladder (principal); Z87.891 Personal history of nicotine dependence
CPT/HCPCS: 52317; 82365; 88300; C1769; J0690; J1100; J2704; J3010; J7120

== ENCOUNTER 2025-01-14 20:03 | Emergency (ER) | payer MEDICARE, OTHER, SELFPAY ==
[2025-01-14 20:05] VITALS: BP 137/81; PULSE 80; RESP 16; TEMP 36.6; O2SAT 97
--- OUTSIDE RECORDS SUMMARY | 2025-01-14 20:06 | XMS_ITS | Data Portability ---
Author Organization ID - [facility]anna roblesJon [facility] Address [address] [place] [address] Care Team Providers Care Recycling Crew Supervisor Name Role Phone ANGEL SINCLAIR Primary Care Provider Assessment No assessment recorded. Plan of Treatment Reminders Order Date Submit Date Provider Last Modified By Organization Details Last Modified Time Details Appointments None recorded. Lab None recorded. Referral occupation al therapist referral - [facility] for strengthen ing exercises 2022 023 [facility] , [place], [address], 3 09:30:33 occupation al therapist referral 2022 023 [facility] [address] , [place], [address], 3 09:35:17 Procedures None recorded. Surgeries None recorded. Imaging None recorded. Medication Orders None recorded. Patient TargetsNo targets recorded. Patient Instructions Encounter Date Encounter Id Patient Instructions Last Modified By Organization Details Last Modified Time 07/24/2022 [id number] I discussed with Dion and his that [...] activity. [email or web address] Not available 07/24/2022 09:32:50 09/04/2022 [id number] I discussed with Dion that he is doing well following his fracture. I want him to start some formal physical therapy working on range of motion exercises. He said he wants to do this at [facility] here in [place] so I will fax the order over [...] Elder Garcia. Not available 09/06/2022 09:30:57 10/16/2022 [id number] I discussed with Dion and his that [...] tam No observ ation record ed. [email or web address] [address] [place], [address], 09/04/2022 18:36:30 10/16/19 23 10/16/2022 XR, clavi tam No observ ation record ed. [email or web address] [address] [place], [id number], 10/17/2022 15:37:39 Result Notes None recorded. Problems Name Problem SNOMED Code Status Onset Date Resolution Date Notes Provider Name and Address Organization Details Recorded Time Parkinson 's disease 65700906 Active 2021 javi damon null, [place] - [facility] 2 13:08:48 Closed fracture of acromial end of right clavicle 550391062467375 06 Active 2021 Cinthia Merida null, [place] - [facility] 2 09:25:57 Clavicle pain 103638489 Active 2021 Cinthia Merida [place], [place] - [facility] 2 09:26:23 Closed fracture of acromial end of clavicle 6184791 Active 2022 GONZALES SEGUNDO, BUILDING RENTAL SUPERINTENDENT [address] [place], [address], [facility] - [facility] 09:29:09 Problem Notes None recorded. Procedures Surgical History Date Name Laterality Status Provider Name and Address Organization Details Recorded Time deep brain stimulation completed javi marisol [place] - [facility] 07/23/2022 13:12:48 Imaging Results None recorded. Procedure Notes None recorded. Medical Equipment None [...] index (BMI) Body weight Heart rate Systolic And Diastolic Provider Name and Address Organization Details Last Updated DateTime 09/04/2022 172.72 cm 26.6 kg/m2 43082.66 g 73 /min 100/66 mm[Hg] Cinthia Merida [place] - [facility] 09/04/2022 09:09:08 Date Recorded Body height Body mass index (BMI) Body weight Heart rate Systolic And Diastolic Provider Name and Address Organization Details Last Updated DateTime 10/16/2022 172.72 cm 27.9 kg/m2 02863.84 g 72 /min 120/72 mm[Hg] Ericka Kaur [place] - [facility] 10/16/2022 08:56:35 Date Recorded Body height Body mass index (BMI) Body weight Heart rate Systolic And Diastolic Provider Name and Address Organization Details Last Updated DateTime 07/24/2022 172.72 cm 27 kg/m2 41511 g 78 /min 114/62 mm[Hg] Erickakristy Kaur [place] - [facility] 07/24/2022 09:02:17 Social History Question Answer Notes LastModified by Organizat ion Details LastModified Time Tobacco Smoking Status Never Smoker javi dickinson, [place] - [facility] 07/23/2022 13:12:19 Do You Have An Advance Directive? No [email or web address] Information n ot available 07/23/2022 Are You Blind Or Do You Have Difficulty Seeing? No Information n ot available 07/23/2022 Is Blood Transfusion Acceptable In An Emergency? Yes Information not available 07/23/2022 What Is Your Level Of Caffeine Consumption? Moderate Information not available 07/23/2022 In The 14 Days Before Symptom Onset, Have You Had Close Contact With A Laboratory-confirm ed COVID-19 While That Case Was Ill? No Information n ot available 07/23/2022 In The 14 Days Before Symptom Onset, Have You Had Close Contact With A Person Who Is Under Investigation For COVID-19 While That Person Was Ill? No [email or web address] Information not available 07/23/2022 Have You Been To An Area Known To Be High Risk For COVID-19? No Information not available 07/23/2022 Are You Deaf Or Do You Have Serious Difficulty Hearing? No [email or web address] Information not available 07/23/2022 What Type Of Diet Are You Following? REGULAR [email or web address] Information n ot available 07/23/2022 Have You Processed Blood Or Body Fluids From An Ebola Virus Disease Patient Without Appropriate PPE? No [email or web address] Information not available 07/23/2022 Do You Reside In Or Have You Traveled To An Area Where Ebola Virus Transmission Is Active? No Information not available 07/23/2022 What Is The Highest Grade Or Level Of School You Have Completed Or The Highest Degree You Have Received? [id number] Information not available 07/23/2022 Who Is Your Employer? [employer] Information not available 07/23/2022 How Many Days Of Moderate To Strenuous Exercise, Like A Brisk Walk, Did You Do In The Last 7 Days? 3 Information not available 07/23/2022 Are There Any Guns Present In Your Home? No Information not available 07/23/2022 Which Of Your Hands Is Dominant? Right [email or web address] Information n ot available 07/23/2022 What Is Your Relationship Status? Information not available 07/23/2022 Do You Use Your Seat Belt Or Car Seat Routinely? Yes Information not available 07/23/2022 Are You Sexually Active? No [email or web address] Information not available 07/23/2022 Do You Have Smoke And Carbon Monoxide Detectors In Your Home? Yes Information not available 07/23/2022 What Types Of Sporting Activities Do You Participate In? Boxing Information not available 07/23/2022 Do You Use Sunscreen Routinely? Yes [email or web address] Information not available 07/23/2022 Do You Have Difficulty Walking Or Climbing Stairs? No [email or web address] Information not available 07/23/2022 Sex: Male Functional Status Question Answer Note LastModified by Organizat ion Details LastModified Time Do you use any illicit or recreational drugs? No [email or web address] Information not available 07/23/2022 What is your level of alcohol consumption? Occasional [email or web address] Information not available 07/23/2022 Are you currently employed? Yes Information not available 07/23/2022 Are you able to walk? YESWOREST [email or web address] Information not available 07/23/2022 Do you have difficulty doing errands alone? No [email or web address] Information not available 07/23/2022 Are you able to care for yourself? 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 No Information not available 07/23/2022 What is your exercise level? Moderate [email or web address] Information not available 07/23/2022 Mental Status Question Answer Note LastModified by Organizat ion Details LastModified Time Do you feel stressed (tense, restless, nervous, or anxious, or unable to sleep at night)? [id number] [email or web address] Information not available 07/23/2022 Do you have difficulty concentrating, remembering or making decisions? No Information no t available 07/23/2022 Family History Relationship Description Onset Age of this Age Resolved Age Notes LastModified by Organization Details LastModified Time Father Heart disease Not available 2021 13:09:24 Mother Malignant tumor of breast [email or web address] Not available 2021 13:09:42 Medical History Condition Response Coronary Artery Disease N Anxiety/Depression N Gout N Blood Transfusion N Hernia N COPD N Pacemaker N Orthotics N Arthritis N Blood Clot N Cancer N Stroke N High Cholesterol N Liver Disease N Rheumatoid Arthritis N Kidney Disease N Heart Problems N Migraines N Thyroid Problems N Anemia N Ulcers N Heart Attack ([place]) N Diabetes N Bleeding Disorder N Seizures/Epilepsy N Tuberculosis N AIDS/HIV N Asthma N Peripheral Vascular Disease N Hepatitis N Pulmonary Embolism N Hypertension N Osteoporosis N Past Encounters Encounter ID Performer Location Encounter Start Date Encounter Closed Date Diagnosis/Indication Diagnosis SNOMED-CT Code Diagnosis ICD10 Code Diagnosis Note [id number] Elder aGrcia DO [employer] [facility] [place] [address] [address] [place] [address] 07/24/2022 08:52:44 07/24/2022 09:35:30 Closed fracture of acromial end of right clavicle 6145290641 0459512 S42.031A Clavicle pain 276223869 M25.511 [id number] Elder Garcia DO [facility] [address] [place] [address] 09/04/2022 08:46:16 09/04/2022 09:26:17 Closed fracture of acromial end of right clavicle 8274226976 8015423 S42.031A Closed fra cture of acromial end of clavicle 9333756 S42.031D [id number] Elder Garcia DO Alexandriarukhsana james[address] [place] [address] 10/16/2022 08:48:55 10/16/2022 09:17:27 Closed fracture of acromial end of clavicle 8758255 S42.031D Health Concerns Section Related Observation LastModified by Organization Detai ls LastModified Time None Recorded Concern Status LastModified by Organization Details LastModified Time None Recorded Advance Directives Directive N: Payers Encounter Date Sequence Insurance Name Policy Number Policy Tabares Covered Member ID Tabares Member ID Guarantor Name 07/24/2022 2 [employer] (MEDICARE SUPPLEMENT) Dion Farooq [id number] Dion Shearer [facility] 07/24/2022 1 [place] Dion Farooq Jr [id number] Dion Shearer [facility] 09/04/2022 2 [employer] (MEDICARE SUPPLEMENT) Dion Farooq [id number] Dion Shearer [facility] 09/04/2022 1 [place] Dion Farooq Jr [id number] Dion Shearer [facility] 10/16/2022 2 [employer] (MEDICARE SUPPLEMENT) Dion [facility] [id number] Dion Shearer [facility] 10/16/2022 1 [place] Dion Farooq Jr [id number] Dion Shearer [facility] Notes Date Note Type Note Provider Name and Address Organization Details Recorded Time 07/24/2022 text/html ClavicleReported bypatient.Hand Dominance:right Location:right; anterior Severity:mild Duration:date of onset: (07/20/22) Alleviating factors:ice; limited weight bearing; sling Aggravating factors:lifting; carrying; pushing/pulling; ROM; weightbearing Associated Symptoms:no numbness; no tingling;weakness;swel ling Previous Injections:none Previous PT:none Work Related:no Dion is here today for a right clavicle fracture. He presents today in a sling. He states he started falling forward on 07/20/22 while playing football trying to catch the ball. He landed on his right side. As he hit the ground he heard and felt a pop in his clavicle area. He did have immediate pain. He presented to the [place] [facility] where a fracture was noted. He does inform me that he has Parkinson's and has a brain stimulator implanted and in May they decreased his oral medication which started affecting his balance. He believes this helped increase his reason for falling. His ROS is located in the chart and [place] [address] [place], [address], [place] [facility] 07/24/2022 [...] no new complaints today. GONZALES SEGUNDO APRN [address] [place], [address], [place] [facility] 09/06/2022 [...] has no new complaints today. GONZALES SEGUNDO, BUILDING RENTAL SUPERINTENDENT [address] [place], [address], [place] [facility] 10/16/2022 10:09:11
--- OUTSIDE RECORDS SUMMARY | 2025-01-14 20:06 | XMS_ITS | Clinical Summary ---
Author Organization [facility] Address [address] [place] [address] Care Team Providers Care Candy Mixer Name Role Phone Tayo Ross MD Primary Care Provider Source Comments [facility],non-owned Affiliates and Associated Physician Practices is amultiple site organization consisting of ambulatory clinics and hospital sitesin [place], [place], [place] and [place]. This disclosure is being madepursuant to the Care Everywhere program and may not contain all information available regarding this patient. Last updated 18.[facility] Allergies No known active allergies Medications * [...] (AZILECT) 1 MG tabletIndicatio ns:PD (Parkinson's disease) ([facility]) Patient to take .5 tablet daily 45 tablet 3 0 Active carbidopa-levod opa CR (SINEMET CR) 50-200 MG tabletIndicatio ns:PD (Parkinson's disease) ([facility]) Take 1 tablet by mouth at bedtime 90 tablet 3 0 Active levothyroxine (SYNTHROID) 137 MCG tablet Take 137 mcg by mouth once daily 1 Active rOPINIRole (REQUIP) 0.5 MG tabletIndicatio ns:RLS (restless legs syndrome),PD (Parkinson's disease) ([facility]) Take 1 (one) tablet by [...] on file Legal Sex Male 5:26 PM [employer] Gender Identity Not on file Sexual Orientation Not on file Last Filed Vital Signs Vital Sign Reading Time Taken Comments Blood Pressure 112/72 10/12/2020 11:07 AM [employer] TE[employer]ER Pulse 81 10/12/2020 11:07 AM [employer] ADVISORY TE[employer]ER Temperature 36.4 C (97.5 F) 10/12/2020 11:07 AM [employer] ADVISORY TE[employer]ER Respiratory Rate - - Oxygen Saturation 98% 10/12/2020 11:07 AM [employer]ORY TEACHER Inhaled Oxygen Concentration - - Weight 78.7 kg (173 lb 9.6 oz) 10/12/2020 11:07 AM [employer] TE[employer] Height 172.7 cm (5' 8 ) 10/12/2020 11:07 AM [employer] TE[employer]ER Body Mass Index 26.4 10/12/2020 11:07 AM [employer] ADVISORY TEACHER Plan of Treatment Health Maintenance Due Date [...] age to complete this topic Care Teams Candy Mixer Relationship Specialty Start Date End Date Tayo Ross MD [address] [place] [address] PCP - General 12/20/16
--- OUTSIDE RECORDS SUMMARY | 2025-01-14 20:06 | XMS_ITS | Patient Health Record ---
Author Organization [facility] Address [address] [place] [address] Care Team Providers Care Forensic Manager Name Role Phone Dr. Leonid Ross Primary Care Provider [id number] Manuel Nair Unavailable [phone] Bindu Eastman Unavailable [phone] Migration, Provider Unavailable Unavailable Allergies No Known Allergies Results Component Value Reference Range Notes Urine Culture Reviewed date:04/05/2024 12:00:00 AM Interpretation: Performing Lab: Notes/Report: C Urine See Below CBC w/ Diff Reviewed date:05/13/2024 12:00:00 AM Interpretation: Performing Lab: Notes/Report: Basophil Auto 0.5 % Eos Absolute 0.2 x10*3/mcL Eosinophil Auto 3.3 % Hct 43.7 % Hgb 14.9 g/dL Lymph Absolute 2.2 x10*3/mcL Lymph Auto 33.8 % MCH 33.3 pg MCHC 34.2 g/dL MCV 97.5 fL [place] Absolute 0.4 x10*3/mcL [place] Auto 6.5 % MPV 9.9 fL Neutro Absolute 3.7 x10*3/mcL Neutro Auto 55.9 % Platelets 203 K/mcL RBC 4.48 x10*6/mcL RDW 12.3 % WBC 6.6 K/mcL Comprehensive Metabolic Pane l Reviewed date:05/13/2024 12:00:00 [...] Total 7.0 g/dL Sodium Lvl 141 mmol/L Lipid Panel {Chol, Trig, HDL , LDL} Reviewed date:05/13/2024 12:00:00 AM Interpretation: Performing Lab: Notes/Report: Chol/HDL 4 Cholesterol Total 184 mg/dL Coronary Risk 24 % HDL 45 mg/dL LDL 99 mg/dL NON HDL CHOLESTEROL 139 mg/dL Triglycerides 200 mg/dL Testosterone Total Reviewed date:05/13/2024 12:00:00 AM Interpretation: Performing Lab: Notes/Report: TESTOSTERONE TOTAL 343.1 ng/dL Thyroid Stimulating Hormone Reviewed date:05/13/2024 12:00:00 AM Interpretation: Performing Lab: Notes/Report: TSH 4.08 mcIU/mL AUDIT-C Reviewed date:05/12/2024 12:00:00 AM Interpretation: Performing Lab: Notes/Report: How many standard drinks containing alcohol do you have on a typical day? 1 or 2 drinks How often do you have 6 or more drinks on 1 occasion Never How often do you have a drink containing alcohol Monthly or less Total Score 1 Patient Health Questionnaire (PHQ9) Reviewed date:05/12/2024 12:00:00 [...] staying asleep, or sleeping too much 0 C-Reactive Protein Reviewed date:11/10/2024 08:07:37 AM Interpretation: Performing Lab: Notes/Report: add on Test Performed by: [place] [address] Filter Press Supervisor: Herminio Duvall DO CRP <0.1 0.0-1.0 mg/dL Erythrocyte Sedimentation Ra te Reviewed date:11/10/2024 08:07:37 AM Interpretation: Performing Lab: Notes/Report: Test Performed by: [place] [address] Filter Press Supervisor: Herminio Duvall DO ESR, [place] 2 0-20 mm/hr Vitamin D 25 Hydroxy Reviewed date:11/03/2024 02:33:10 PM Interpretation: Performing Lab: Notes/Report: Test Performed by: [place] [address] [employer] Press Supervisor: Herminio Duavll DO Vitamin D 25 OH 70 30-100 ng/mL Vitamin D25 Interpretation: Deficient: <= 20 ng/mL Insufficient: 21-29 ng/mL Sufficient: 30-100 ng/mL Upper Safety Limit: >100 ng/mL T4 Free Reviewed date:11/03/2024 02:33:10 PM Interpretation: Performing Lab: Notes/Report: Test Performed by: [place] [address] [employer] Press Supervisor: Herminio Duvall DO T4 Free 1.13 0.60-1.70 ng/dL CBC w Auto Diff Reviewed date:11/03/2024 02:33:10 PM Interpretation: Performing Lab: Notes/Report: Test Performed by: [place] [address] [employer] Press Supervisor: Herminio Duvall DO WBC 4.9 4.0-11.7 K/mcL RBC 4.61 4.28-5.56 x10*6/mcL Hgb 15.2 13.0-17.0 g/dL Hct 43.9 38.1-48.9 % MCV 95.3 83.4-98.1 fL MCH 33.0 27.0-34.2 pg MCHC 34.6 31.8-35.3 g/dL RDW 12.9 12.0-16.4 % Platelets 236 149-393 K/mcL MPV 9.4 7.0-11.0 fL Neutro Auto 51.6 45.3-79.0 % Lymph Auto 38.2 11.8-45.9 % [place] Auto 7.1 4.4-12.0 % Eosinophil Auto 2.3 0.0-6.3 % Basophil Auto 0.8 0.2-1.6 % Neutro Absolute 2.5 2.4-8.4 x10*3/mcL Lymph Absolute 1.9 0.8-3.7 x10*3/mcL [place] Absolute 0.3 0.3-1.1 x10*3/mcL Eos Absolute 0.1 0.0-0.5 x10*3/mcL Comprehensive Metabolic Pane l Reviewed date:11/03/2024 02:33:10 PM Interpretation: Performing Lab: Notes/Report: Test Performed by: [place] [address] Filter Press Supervisor: Herminio Duvall DO Glucose Lvl 98 74-109 [...] 13 7-52 unit/L AST 14 13-39 unit/L Thyroid Stimulating Hormone Reviewed date:11/03/2024 02:33:10 PM Interpretation: Performing Lab: Notes/Report: Test Performed by: [place] [id number] [employer] Press Supervisor: Herminio Duvall DO TSH 1.76 0.45-5.33 mcIU/mL Vitamin B12 Reviewed date:11/03/2024 02:33:10 PM Interpretation: Performing Lab: Notes/Report: Test Performed by: [place] [id number] Filter Press Supervisor: Herminio Duvall DO Vitamin B12 Lvl 776 180-914 pg/mL Vitamin B12 Interpretation: Normal Range: 180-914 pg/mL Indeterminate: 140-180 pg/mL Deficient: <140 pg/mL T4 Free Reviewed date:05/13/2024 12:00:00 AM Interpretation: Performing Lab: Notes/Report: T4 Free 1.00 ng/dL PSA, Diagnostic Reviewed date:05/13/2024 12:00:00 AM Interpretation: Performing Lab: Notes/Report: PSA Total 4.84 ng/mL Reason For Referral Reason referral to urology- closest location possible. Diagnosis 1 Benign prostatic hyp erplasia with lower urinary tract symptoms, symptom details unspecified (N40.1) Referral Organization [facility] Referring Provider First Name Bindu Referring Provider Last Name Jaren Referring Provider Speciality Nurse Prac titioner Referred Provider Specialty Urology General Notes Kandis Smith 1 10/21/2023 02:32:30 PM MEMBERSHIP SECRETARY >Faxed referral to Urology of [facility] [phone], Kristy Feldman 09/14/2024 09:20:59 AM MEMBERSHIP SECRETARY >Called to f/u and spoke with special investigator. Stated they had the referral and their [...] Manfred doesn't hear from them today. P: [phone].Nelson Brooke 11/11/2024 09:03:46 AM CDT >Pt is [...] Multivitamin oral; Duration: 0 *Pick strength-form from [facility] for eRX* 01/16/2021 Unknown Selegiline HCl 5 MG Tablet 1 tablet with breakfast and lunch Orally Twice a day Unknown Tamsulosin HCl 0.4 MG Capsule 1 capsule Orally twice a day; Duration: 30 days Unknown Immunizations Vaccine Route Administration Date Status Comme nts Influenza, high-dose seasonal, quadrivalent, preservative free >65 yrs IM Intramuscular 06/06/2023 Administered ,sourcename : N ew immunization record ,immstatus : Complete Moderna Covid-19 Vaccine 1st dose Unknown 11/08/2020 Administered ,sourcename : New immunization record Source VFC Code: : Moderna Covid-19 Vaccine 1st dose Unknown 12/09/2020 Administered ,sourcename : New immunization record Source VFC Code: : Moderna Covid-19 Vaccine 1st dose Unknown 07/24/2021 Administered Source VFC Code: : Moderna Covid-19 Vaccine 1st dose Unknown 12/17/2021 Administered Source VFC Code: : RSV-MAb (Respiratory syncytial virus immune globulin) IM Intramuscular 05/12/2024 Administered ,sourcename : New immunization record ,immstatus : Complete Tdap IM Intramuscular 02/16/2018 Administered Source VFC Code: : Zoster IM Intramuscular 02/05/2019 Administered Source VFC Code: : Zoster IM Intramuscular 05/04/2019 Administered Source VFC Code: : Social History Social History Additional Details Category Social Info Options Details Migrated Social History Migrated Social History Tobacco history:Never smoker Problems Problem Type SNOMED Code ICD Code Onset Dates Problem Status W/U Status Risk Notes Problem Acute prostatitis (16707404) Acute prostatitis (N41.0) Active confirmed Problem Benign prostatic hypertrophy without outflow obstruction (905961583) Benign prostatic hyperplasia without lower urinary tract symptoms (N40.0) Active confirmed Problem Lower urinary tract symptoms due to benign prostatic hypertrophy (26816801895408) Benign prostatic hyperplasia with lower urinary tract symptoms, symptom details unspecified (N40.1) Active confirmed Problem Sepsis due to unspecified staphylococcus (A41.2) 023 Active confirmed Problem Leukopenia (61302959) Decreased white blood cell count, unspecified (D72.819) 022 Active confirmed Problem Hypothyroidism (41804377) Hypothyroidism, unspecified (E03.9) Active confirmed Problem Parkinson's disease (83923568) Parkinson's disease (G20) Active confirmed Problem Diverticula of intestine (48970384) Diverticulosis of intestine, part unspecified, without perforation or abscess without bleeding (K57.90) Active confirmed Problem Constipation (51320563) Constipation, unspecified (K59.00) 021 Active confirmed Problem Cholelithiasis without obstruction (94704193) Calculus of gallbladder without cholecystitis without obstruction (K80.20) 024 Active confirmed Problem Arthralgia of the ankle and/or foot (860860322) Pain in left ankle and joints of left foot (M25.572) 08/08/2 023 Active confirmed Problem Urinary tract infectious disease (disorder) (08966431) Urinary tract infection, site not specified (N39.0) Active confirmed Problem Prostatitis (1565595) Inflammatory disease of prostate, unspecified (N41.9) Active confirmed Problem Erectile dysfunction (disorder) (071076327) Male erectile dysfunction, unspecified (N52.9) Active confirmed Problem Pleurodynia (4212450) Pleurodynia (R07.81) Active confirmed Problem Abdominal pain (16346133) Unspecified abdominal pain (R10.9) Active confirmed Problem Flatulence, eructation and gas pain (125743404) Abdominal distension (gaseous) (R14.0) Active confirmed Problem Hematuria (74596767) Hematuria, unspecified (R31.9) Active confirmed Problem Electrocardiogram abnormal (519908586) Abnormal electrocardiogram [ECG] [EKG] (R94.31) Active confirmed Problem Sprain of ankle (18325234) Sprain of unspecified ligament of left ankle, initial encounter (S93.402A) Active confirmed Problem Motion sickness (58468640) Motion sickness, initial encounter (T75.3XXA) Active confirmed Problem Other mechanical complication of other internal orthopedic devices, implants and grafts, initial encounter (T84.498A) Active confirmed Problem Adult health examination (993373997) Encounter for general adult medical examination without abnormal findings (Z00.00) Active confirmed Problem Problem, abnormal examination (24450866) Encounter for general adult medical examination with abnormal findings (Z00.01) Active confirmed Problem Pre-procedure evaluation check (035068957) Encounter for other preprocedural examination (Z01.818) Active confirmed Problem Lipid screening (780894834) Encounter for screening for lipoid disorders (Z13.220) Active confirmed Problem Vaccination given (782319577) Encounter for immunization (Z23) 10/13/2 023 Active confirmed Problem Difficulty passing urine (205001770) Other difficulties with micturition (R39.198) 022 Active confirmed Problem Elevated PSA (118761071) Elevated prostate specific antigen [PSA] (R97.20) 022 Active confirmed Problem Chronic cough (40778642) Chronic cough (R05.3) 023 Active confirmed Problem Cough (finding) (12021783) Cough, unspecified (R05.9) 023 Active confirmed Problem Body mass index 25-29 - overweight (479223083) Body mass index (BMI) 28.0-28.9, adult (Z68.28) 023 Active confirmed Problem Body mass index 25-29 - overweight (662995933) Body mass index (BMI) 27.0-27.9, adult (Z68.27) 023 Active confirmed Problem Body mass index 30.00 to 34.99 (325819230549284) Body mass index (BMI) 31.0-31.9, adult (Z68.31) 024 Active confirmed Problem Dermatophytosis of nail (018780881) Dermatophytosis of nail (110.1) 017 Problem resolved confirmed Problem Neoplasm of uncertain behavior of skin (63367543) Neoplasm of uncertain behavior of skin (238.2) 019 Problem resolved confirmed Problem Hyperlipidemia (71380137) Other and unspecified hyperlipidemia (272.4) 016 Problem resolved confirmed Problem Otorrhea (34135437) Unspecified otorrhea (388.60) 017 Problem resolved confirmed Problem Acute sinusitis (disorder) (04642490) Other acute sinusitis (461.8) 017 Problem resolved confirmed Problem Acute bronchitis (59735777) Acute bronchitis (466.0) 017 Problem resolved confirmed Problem Prostatitis (8105207) Unspecified prostatitis (601.9) 016 Problem resolved confirmed Problem Seborrheic dermatitis (51694519) Other seborrheic dermatitis (690.18) 017 Problem resolved confirmed Problem Acne scars - mixed atrophic and hypertrophic (659427761) Other specified hypertrophic and atrophic condition of skin (701.8) 017 Problem resolved confirmed Problem Cough (73326420) Cough (786.2) 017 Problem resolved confirmed Problem Abnormal chest sounds (52202477372254) Abnormal chest sounds (786.7) 017 Problem resolved confirmed Problem Pneumococcal conjugate vaccination (335390350519922) Need for prophylactic vaccination against streptococcus pneumoniae (pneumococcus) (V03.82) 019 Problem resolved confirmed Problem Requires varicella vaccination (finding) (721327586) Need for prophylactic vaccination and inoculation against varicella (V05.4) 019 Problem resolved confirmed Problem Vaccine product containing only acellular Bordetella pertussis and Clostridium tetani and Corynebacterium diphtheriae antigens (medicinal product) (412698166) Diphtheria-tetanus- pertussis, combined [DTP] [DtaP] (V06.1) 018 Problem resolved confirmed Problem Tinea unguium (486885658) Tinea unguium (B35.1) 017 Problem resolved confirmed Problem Neoplasm of uncertain behavior of skin (29916554) Neoplasm of uncertain behavior of skin (D48.5) 019 Problem resolved confirmed Problem Mixed hyperlipidemia (253591286) Mixed hyperlipidemia (E78.2) 016 Problem resolved confirmed Problem Acute pansinusitis (9533142) Acute pansinusitis, unspecified (J01.40) 017 Problem resolved confirmed Problem Acute upper respiratory infection (05507342) Acute upper respiratory infection, unspecified (J06.9) 017 Problem resolved confirmed Problem Acute bronchitis (89982335) Acute bronchitis, unspecified (J20.9) 017 Problem resolved confirmed Problem Seborrheic dermatitis (64303794) Other seborrheic dermatitis (L21.8) 017 Problem resolved confirmed Problem Xerosis cutis (31246620) Xerosis cutis (L85.3) 017 Problem resolved confirmed Problem Pain of right knee region (finding) (078095234634583) Pain in right knee (M25.561) 017 Problem resolved confirmed Problem Low back pain (929686574) Low back pain (M54.5) 021 Problem resolved confirmed Problem Other specified symptoms and signs involving the circulatory and respiratory systems (R09.89) 017 Problem resolved confirmed Problem Closed fracture of acromial end of clavicle (0818831) Displaced fracture of lateral end of right clavicle, initial encounter for closed fracture (S42.031A) 023 Problem resolved confirmed Problem History and physical examination, follow-up (309672552) Encounter for follow-up examination after completed treatment for conditions other than malignant neoplasm (Z09) 023 Problem resolved confirmed Problem Viral screening (225865128) Encounter for screening for other viral diseases (Z11.59) 022 Problem resolved confirmed Problem Nicotine dependence (40515783) Personal history of nicotine dependence (Z87.891) 022 Problem resolved confirmed Problem Suspected disease caused by Severe acute respiratory coronavirus 2 (situation) (028227952) Encounter for screening for COVID-19 (Z11.52) 022 Problem resolved confirmed Vital Signs Heart Rate 81 /min 11/02/2024 Temperature 97.9 degrees Fahrenheit 11/02/2024 Respiratory Rate 16 /min 07/02/2024 Height-cm 165.1 cm 11/02/2024 Blood pressure diastolic 68 mm Hg 11/02/2024 Oximetry 97 % 11/02/2024 Weight-kg 86.55 kg 11/02/2024 Height 65.00 in 11/02/2024 Blood pressure systolic 118 mm Hg 11/02/2024 Weight 190.8 lbs 11/02/2024 BMI 31.75 kg/m2 11/02/2024 Encounters Encounter Location Date Provider Diagnosis [address] [address] 01/28/2024 Manuel Joanie Calculus of gallbladder without cholecystitis without obstruction K80.20 and Unspecified abdominal pain R10.[address] [address] 03/16/2024 Dr. Leonid Ross Unspecified abdomina l pain R10.[address] [address] 03/30/2024 Provider Migration Urinary tract infection, site not specified N39.0 and Hematuria, unspecified R31.[address] [address] 04/01/2024 Provider Migration Inflammatory disease of prostate, unspecified N41.[address] [address] 04/22/2024 Dr. Leonid Ross [address] [address] 04/23/2024 Provider Migration Parkinson's disease G20 ; Male erectile dysfunction, unspecified N52.9 ; Elevated prostate specific antigen [PSA] R97.20 ; Inflammatory disease of prostate, unspecified N41.9 ; Encounter for screening for lipoid disorders Z13.220 and Hypothyroidism, unspecified E03.[address] [address] 05/03/2024 Dr. Leonid Ross Pleurodynia R07.[address] [address] 05/12/2024 Manuel Nair Elevated prostate specific antigen [PSA] R97.20 ; Encounter for general adult medical examination without abnormal findings Z00.00 ; Hypothyroidism, unspecified E03.9 ; Sepsis due to unspecified staphylococcus A41.2 ; Other mechanical complication of other internal orthopedic devices, implants and grafts, initial encounter T84.498A ; Parkinson's disease G20 and Body mass index (BMI) 31.0-31.9, adult Z68.[address] [address] 07/02/2024 Manuel Nair Inflammatory disease of prostate, unspecified N41.[address] [address] 09/14/2024 Dr. Leonid Ross Superficial laceration T14.8XXA and Benign prostatic hyperplasia with lower urinary tract symptoms, symptom details unspecified N40.[address] [address] 11/02/2024 Manuel Nair Hypothyroidism, unspecified E03.9 ; Parkinson's disease with fluctuating manifestations, unspecified whether dyskinesia present G20.A2 ; Low energy R53.83 ; Other fatigue R53.83 and exterminator termite use of drug Z79.[address] [address] 07/24/2024 Provider Migration [address] [address] 07/25/2024 Provider Migration [address] [address] 08/08/2024 Bindu Eastman Acute prostatitis N41.0 ; Benign prostatic hyperplasia with lower urinary tract symptoms, symptom details unspecified N40.1 and Elevated prostate specific antigen [PSA] R97.[address] [address] 11/03/2024 [facility] Other fatigue R53.[address] [address] 11/03/[address] [address] 11/10/[address] [address] 11/11/2024 Dr. Leonid Ross Assessments Encounter Date Diagnosis (ICD Code) Assessment Notes Treatment Notes Treatment Clinical Notes Section Notes 11/03/2024 Other fatigue (ICD-10 - R53.83) 11/02/2024 Parkinson's disease with fluctuating manifestations, unspecified whether dyskinesia present (ICD-10 - G20.A2) 08/08/2024 Benign prostatic hyperplasia with lower urinary tract symptoms, symptom details unspecified (ICD-10 - N40.1) 09/14/2024 Superficial laceration (ICD-10 - T14.8XXA) 11/02/2024 Hypothyroidism, unspecified (ICD-10 - E03.9) 01/28/2024 Calculus of gallbladder without cholecystitis without obstruction (ICD-10 - K80.20) 01/28/2024 Unspecified abdominal pain (ICD-10 - R10.9) 03/16/2024 Unspecified abdominal pain (ICD-10 - R10.9) 03/30/2024 Urinary tract infection, site not specified (ICD-10 - N39.0) 03/30/2024 Hematuria, unspecified (ICD-10 - R31.9) 04/01/2024 Inflammatory disease of prostate, unspecified (ICD-10 - N41.9) 04/23/2024 Hypothyroidism, unspecified (ICD-10 - E03.9) 04/23/2024 Parkinson's disease (ICD-10 - G20) 04/23/2024 Inflammatory disease of prostate, unspecified (ICD-10 - N41.9) 04/23/2024 Male erectile dysfunction, unspecified (ICD-10 - N52.9) 04/23/2024 Encounter for screening for lipoid disorders (ICD-10 - Z13.220) 04/23/2024 Elevated prostate specific antigen [PSA] (ICD-10 - R97.20) 05/03/2024 Pleurodynia (ICD-10 - R07.81) 05/12/2024 Sepsis due to unspecified staphylococcus (ICD-10 [...] index (BMI) 31.0-31.9, adult (ICD-10 - Z68.31) 07/02/2024 Inflammatory disease of prostate, unspecified (ICD-10 - N41.9) 08/08/2024 Acute prostatitis (ICD-10 - N41.0) 08/08/2024 Elevated prostate specific antigen [PSA] (ICD-10 - R97.20) 09/14/2024 Benign prostatic hyperplasia with lower urinary tract symptoms, symptom details unspecified (ICD-10 - N40.1) 11/02/2024 Low energy (ICD-10 - R53.83) 11/02/2024 Other fatigue (ICD-10 - R53.83) Checking [...] may consider based on further evaluation. 11/02/2024 half-way use of drug (ICD-10 - Z79.899) Plan Of Treatment Pending Test Test Name Order Date Vitamin B12 11/02/2024 Thyroxine (T4) Free, Direct, S 5 TSH 11/02/2024 CBC With Differential/Platelet 5 Vitamin D, 25-Hydroxy 11/02/2024 Comp. Metabolic Panel (14) 11/02/2024 C-Reactive Protein 11/03/2024 Erythrocyte Sedimentation Rate 5 Next Appt Details Provider Name:Manuel kline, 05/17/2025 01:30:00 PM, [address] [facility], [place], [address], [phone] Insurance Providers Payer Name Payer Address Payer Phone Subscriber Number Group Number Insured Name Patient Relationship to Insured Coverage Start Date Coverage End Date [employer] Medicare RHC [address] [place] [address] [id number] Dion Palacios Self - patient is the insured 2 [employer] [place] [address] [facility] [place] [address] [id number] Dion Palacios Self - patient is the insured 2 [employer] Medicare B [address] [place] [address] [id number] Dion Palacios Self - patient is the [...] calculous cholecystitis. Completed by Dr. Hicks. 02/05/24 Cystoscopy, laser lithotrips y with extraction bladder stones. Dr. Bailey. 01/13/25
--- OUTSIDE RECORDS SUMMARY | 2025-01-14 20:29 | XMS_ITS | Clinical Summary ---
Author Organization [facility] Address [address] [place] [address] Care Team Providers Care User Interface Engineer Name Role Phone Tayo Ross MD Primary Care Provider Source Comments [facility],non-owned Affiliates and Associated Physician Practices is amultiple site organization consisting of ambulatory clinics and hospital sitesin [place], [place], [place] and [place]. This disclosure is being madepursuant to the Care Everywhere program and may not contain all information available regarding this patient. Last updated 18.[facility] Allergies No known active allergies Medications * [...] (AZILECT) 1 MG tabletIndicatio ns:PD (Parkinson's disease) ([facility]) Patient to take .5 tablet daily 45 tablet 3 0 Active carbidopa-levod opa CR (SINEMET CR) 50-200 MG tabletIndicatio ns:PD (Parkinson's disease) ([facility]) Take 1 tablet by mouth at bedtime 90 tablet 3 0 Active levothyroxine (SYNTHROID) 137 MCG tablet Take 137 mcg by mouth once daily 1 Active rOPINIRole (REQUIP) 0.5 MG tabletIndicatio ns:RLS (restless legs syndrome),PD (Parkinson's disease) ([facility]) Take 1 (one) tablet by mouth at [...] on file Legal Sex Male 5:26 PM [employer] Gender Identity Not on file Sexual Orientation Not on file Last Filed Vital Signs Vital Sign Reading Time Taken Comments Blood Pressure 112/72 10/12/2020 11:07 AM [employer] T[employer]AT[employer]IST Pulse 81 10/12/2020 11:07 AM [employer] T[employer] SPECIALIST Temperature 36.4 C (97.5 F) 10/12/2020 11:07 AM [employer] TREATMENT SPECIALIST Respiratory Rate - - Oxygen Saturation 98% 10/12/2020 11:07 AM [employer] TREATMENT SPECIALIST Inhaled Oxygen Concentration - - Weight 78.7 kg (173 lb 9.6 oz) 10/12/2020 11:07 AM [employer] TREATMENT SPECIALIST Height 172.7 cm (5' 8 ) 10/12/2020 11:07 AM [employer] TREATMENT SPECIALIST Body Mass Index 26.4 10/12/2020 11:07 AM [employer] TREATMENT SPECIALIST Plan of Treatment Health Maintenance Due Date [...] age to complete this topic Care Teams User Interface Engineer Relationship Specialty Start Date End Date Tayo Ross MD [address] [place] [address] PCP - General 12/20/16
--- NOTE | 2025-01-14 20:44 | ED.MALEGU ---
HPI - Male Genitourinary General Chief complaint: Urogenital-Male Stated complaint: Unable to urinate-bladder stones removed yesterday Time Seen by Provider: 01/14/25 20:22 Source: patient and family () Mode of arrival: ambulatory Limitations: no limitations History of Present Illness HPI Narrative: Patient presents with inability to urinate. Patient had bladder stone removal yesterday with urologist Dr Bailey. notes that there was consideration of sleeping in a urinary catheter in place but ultimately 1 was not. Patient last voided this morning and noted a weak stream at that time as well as drops of blood. He has since developed abdominal distension and intermittent pain that occurs when he has the urge to urinate but is unable to do so. His last bowel movement was this afternoon. He had been constipated but had 3 bowel movements today that were nonbloody. He denies any flank pain, fevers, or chills. He has never previously required a he indwelling urinary catheter in the outpatient setting. Related Data Home Medications ?Medication ?Instructions ?Recorded ?Confirmed ?Last Taken ?Type ascorbic acid (vitamin C) 500 mg 500 mg PO DAILY 12/29/24 01/13/25 01/09/25 History capsule,extended release cholecalciferol (vitamin D3) 125 125 mcg PO DAILY 12/29/24 01/13/25 01/09/25 History mcg (5,000 unit) capsule cyanocobalamin (vitamin B-12) 500 500 mcg PO DAILY 12/29/24 01/13/25 01/09/25 History mcg tablet levothyroxine 150 mcg tablet 150 mcg PO QAM 12/29/24 01/13/25 01/13/25 07:00 History multivitamin (Daily Multi-Vitamin 1 tablet PO DAILY 12/29/24 01/13/25 01/09/25 History tablet) selegiline HCl 5 mg capsule 5 mg PO BID 12/29/24 01/13/25 01/13/25 08:00 History tamsulosin 0.4 mg capsule 0.4 mg PO BID 12/29/24 01/13/25 01/13/25 08:00 History Allergies Allergy/AdvReac Type Severity Reaction Status Date / Time No Known Allergies Allergy Verified 01/14/25 20:05 [facility] Past Medical History Medical History Bladder stones s/p extraction 01/13/25; Dr Bailey Hypothyroidism Parkinson disease Surgical History Surgical History H/O lithotripsy 01/13/25; Dr Bailey Status post cystoscopy 01/13/25; Dr Bailey S/P deep brain stimulator placement Social History Social History Smoking packs per day: 0.25 Smoking cigarettes per day: 5.0 Years smoked: 5 Smoking pack-years: 1.25 Smoking status: Former smoker Tobacco type: cigarettes Smoking end date: 02/22/82 Alcohol intake: current Drinks per week: 2 Living arrangements: with family Additional living arrangements comments: Spiritual care concerns: No Exam Narrative: GENERAL: Well-appearing, well-nourished, and in no acute distress. HEAD: Normocephalic, atraumatic. EYES: Non injected, non icteric ENT: Nares clear, no rhinorrhea or epistaxis. Gross auditory acuity intact. NECK: Supple. No meningismus. CHEST: Speaking in full sentences. No respiratory distress. HEART: Regular rate and rhythm. . ABDOMEN: Distended but soft. Mild discomfort with palpation but No rigidity or guarding. Not peritoneal EXTREMITIES: Normal range of motion. No lower extremity edema. SKIN: Warm, dry, no rash. NEURO: No focal deficits. Alert and oriented. Answering questions. Following commands. PSYCH: Normal mood and affect. Course Vital Signs Vital signs: Vital Signs Temperature 97.9 F 01/14/25 20:05 Pulse Rate 80 01/14/25 20:05 Respiratory Rate 16 01/14/25 20:05 Blood Pressure 137/81 01/14/25 20:05 Pulse Oximetry 97 01/14/25 20:05 Oxygen Delivery Room Air 01/14/25 20:05 Temperature 97.9 F 01/14/25 20:05 Pulse Rate 69 01/14/25 23:27 Respiratory Rate 18 01/14/25 23:27 Blood Pressure 114/75 01/14/25 23:27 Pulse Oximetry 97 01/14/25 23:27 Oxygen Delivery Room Air 01/14/25 20:05 MDM - Male Genitourinary MDM Narrative Medical decision making narrative: Patient presents with inability to urinate. He underwent bladder stone extraction with Dr. Per Josep yesterday. His last void was this morning and he had weak stream at that time with drops of blood. In the emergency department they are afebrile with vital signs within normal limits. Bladder scan >800. Will insert urinary catheter. Normocytic anemia with no prior for comparison. Urine without bacteria. Patient did have hematuria and the has white blood cells. 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 Urine reflexed to culture. Patient is already on cipro 7 day course. Will not add additional antibiotics. Notified by nurse that urine was initially clear but then became gross hematuria. He has had approximately 850 cc out and continues to be flowing w/o clots. Patient to be discharged with leg bag and advised to follow up with Dr Amos on when to follow up (currently has a follow up appointment in January) given urinary retention and Cedillo catheter for trial of void. Patient and his verifies understanding and are in agreement. They were given strict emergency department return precautions including if there is not function/obstruction with the Cedillo catheter or if there are other issues such as intractable nausea, vomiting, fever, flank pain, etc. We discussed that this may indicate a need for CBI. Advised he continue taking the course of antibiotics. Stable for DC. Differential Diagnosis Differential diagnosis: Likely urinary tract infection, acute retention of urine and other (post procedure complication; obstruction) Lab Data Attestation: I reviewed the patient's lab results. 01/14/25 21:03 01/14/25 21:03 Labs: Lab Results 01/14/25 01/14/25 Range/Units 21:03 22:00 WBC 5.1 (4.5-10.0) K/mm3 RBC 4.14 L (4.6-6.20) M/mm3 Hgb 13.6 L (14.0-18.0) g/dL Hct 39.6 L (42.0-52.0) % MCV 95.7 (80-100) fl MCH 32.9 (26-34) pg MCHC 34.3 (32-36) g/dl RDW 12.4 (11.5-14.5) % Plt Count 207 (150-375) k/mm3 MPV 10.3 (7.4-10.4) fl Immature Gran % (Auto) 0.4 (0-0.5) % Neut % (Auto) 52.3 (45.5-73.1) % Lymph % (Auto) 38.7 (18.3-44.2) % Pl[place] % (Auto) 8.4 (2.6-8.5) % Eos % (Auto) 0.0 (0-4.4) % Baso % (Auto) 0.2 (0.2-1.2) % Lymph # (Auto) 1.97 (0.9-3.2) K/mm3 Pl[place] # (Auto) 0.4 (0.1-0.6) K/mm3 Eos # (Auto) 0.0 (0-0.3) K/mm3 Baso # (Auto) 0.0 (0.0-0.1) K/mm3 Abs Immat Gran (auto) 0.02 (0.00-0.031) K/mm3 Absolute Neuts (auto) 2.7 (1.3-6.7) K/mm3 Absolute Nucleated RBC 0.000 (0.0-0.012) K/mm3 Nucleated RBC % 0.0 (0.0-0.2) % Sodium 138 (137-145) mmol/L Potassium 3.9 (3.4-5.0) mmol/L Chloride 107 (98-107) mmol/L Carbon Dioxide 23 (22-30) mmol/L Anion Gap 8 (4-12) mmol/L BUN 16 (9-20) mg/dL Creatinine 0.86 (0.7-1.3) mg/dL Estim Creat Clear Calc 70 ml/min Estimated GFR > 60 (59 - ) Glucose 129 H (65-110) mg/dL Calcium 8.6 (8.4-10.2) mg/dL Urine Color Dark yellow (Yellow) Urine Appearance Turbid H (Clear) Urine pH 6.5 (5.0-9.0) Ur Specific [place] 1.020 (1.001-1.035) Urine Protein 3+ H (Negative) mg/dL Urine Glucose (UA) Negative (Negative) mg/dL Urine Ketones Negative (Negative) mg/dL Ur Blood (Man) 3+ H (Negative) Urine Nitrate Negative (Negative) Urine Bilirubin Negative (Negative) Urine Urobilinogen 1.0 (<2.0) mg/dL Add Ur Microanalysis Reviewed Leukocyte Esterase Rfl 2+ H (Negative) DAVID/UL Urine RBC >100 H (0-2) /hpf Urine WBC 21-50 H (0-3) /hpf Ur Squamous Epith Cells None seen (Few) /hpf Calcium Oxalate Crystal Present (None) /hpf Urine Bacteria None seen /hpf Urine Casts 0-2 Urine Mucus Present /lpf Discharge Plan Discharge Clinical Impression: Acute retention of urine, Normocytic anemia, Gross hematuria Patient Disposition: Home Condition: Stable Instructions: Antibiotic Form, Urinary Retention in Men (ED), Cedillo Catheter Placement and Care (ED), Hematuria (ED), Anemia (ED), How to Change a Catheter Drainage Bag (DC) Additional Instructions: As we discussed, you will go home with the Cedillo/urinary catheter in place. Call Dr Shi to notify him that you had acute urinary obstruction and currently has a Cedillo catheter to discuss when he he wants you to follow-up and if that is different from the initial date planned. Return to the emergency department if you have issues with your catheter such as it not flowing/draining, you have fever greater than 100.4? F, flank pain, etc. or for any other new or worsening symptoms. Continue taking the antibiotic you were prescribed. Patient Language: Senegalese Prescriptions: No Action levothyroxine 150 mcg tablet 150 mcg PO QAM selegiline HCl 5 mg capsule 5 mg PO BID tamsulosin 0.4 mg capsule 0.4 mg PO BID cyanocobalamin (vitamin B-12) 500 mcg tablet 500 mcg PO DAILY cholecalciferol (vitamin D3) 125 mcg (5,000 unit) capsule 125 mcg PO DAILY ascorbic acid (vitamin C) 500 mg capsule, extended release 500 mg PO DAILY multivitamin [Daily Multi-Vitamin] Tablet 1 tablet PO DAILY hydrocodone-acetaminophen 5-325 mg tablet 1 - 2 tablet PO Q6H PRN (Reason: pain) Qty: 20 0RF ciprofloxacin HCl 500 mg tablet 500 mg PO Q12H Qty: 14 0RF Follow-up/Referrals: Dillon Bailey MD [Physician] - Leonid Ross MD [Primary Care Provider] - Stand Alone Forms: Work/School Release IP Time of Disposition: 23:17
[2025-01-14 21:08] LABS: Basophils Percent Auto 0.2 % (0.2-1.2); Hematocrit 39.6 % (42.0-52.0); Hemoglobin 13.6 g/dL (14.0-18.0); Immature Granulocyte Absolute 0.02 K/mm3 (0.00-0.031); Immature Granulocyte Percent A 0.4 % (0-0.5); Lymphocytes Absolute Auto 1.97 K/mm3 (0.9-3.2); Lymphocytes Percent Auto 38.7 % (18.3-44.2); Mean Corpuscular HGB Conc 34.3 g/dl (32-36); Mean Corpuscular Hemoglobin 32.9 pg (26-34); Mean Corpuscular Volume 95.7 fl (80-100); Mean Platelet Volume 10.3 fl (7.4-10.4); Monocytes Absolute Auto 0.4 K/mm3 (0.1-0.6); Monocytes Percent Auto 8.4 % (2.6-8.5); Neutrophils Absolute Auto 2.7 K/mm3 (1.3-6.7); Neutrophils Percent Auto 52.3 % (45.5-73.1); Platelet Count Result 207 k/mm3 (150-375); Red Blood Count 4.14 M/mm3 (4.6-6.20); Red Cell Distribution Width 12.4 % (11.5-14.5); White Blood Count 5.1 K/mm3 (4.5-10.0)
[2025-01-14 21:24] LABS: Anion Gap 8 mmol/L (4-12); Blood Urea Nitrogen 16 mg/dL (9-20); Calcium 8.6 mg/dL (8.4-10.2); Carbon Dioxide 23 mmol/L (22-30); Chloride 107 mmol/L (98-107); Estimated CRCL calculation 70 ml/min; Estimated Glomerular Filt Rate > 60; Glucose 129 mg/dL (65-110); Potassium 3.9 mmol/L (3.4-5.0); Sodium 138 mmol/L (137-145)
[2025-01-14 21:59] VITALS: BP 119/73; PULSE 76; RESP 18; O2SAT 95
--- NOTE | 2025-01-14 22:04 | PC.NURSE ---
Cedillo placed with ease. Approx 800ccs dark, cloudy urine. Patient with immediate relief. UA obtained, sent to lab.
[2025-01-14 22:21] LABS: Add Urine Microscopic? YES; Appearance Urine Turbid (Clear); Bacteria Urine None Seen /hpf; Bilirubin Urine Negative (Negative); Blood Urine 3+ (Negative); Calcium Oxalate Crystals Urine Present /hpf; Color Urine Dark Yellow (Yellow); Glucose Urine UA Negative (Negative); Ketones Urine Negative (Negative); Leukocyte Esterase Ur 2+ LEU/UL (Negative); Mucus Urine Present /lpf; Need Manual Microscopic Reviewed; Nitrate Urine Negative (Negative); Non Pathogenic Casts 0-2; Protein Urine 3+ mg/dL (Negative); RBC Urine >100 /hpf (0-2); Squamous Epithelial Cell Urine None Seen /hpf (Few); WBC Urine 21-50 /hpf (0-3); pH Urine 6.5 (5.0-9.0)
--- NOTE | 2025-01-14 22:56 | PC.NURSE ---
Initial UOP was dark and cloudy but no gross hematuria. Gross hematuria now present. updated.
--- NOTE | 2025-01-14 23:09 | PC.NURSE ---
Patient taking cipro. Per MD, cancel Bactrim Not administered.
[2025-01-14 23:27] VITALS: BP 114/75; PULSE 69; RESP 18; O2SAT 97
== END 2025-01-14 23:29 | disposition home or self-care (01) ==
PROVIDERS: Emergency Medicine; Emergency Provider Student in an Organized Health Care Education/Training Program; PCP Pediatrics
DX: N99.89 Other postprocedural complications and disorders of genitourinary system (principal); R33.9 Retention of urine, unspecified; R31.0 Gross hematuria; D64.9 Anemia, unspecified; E03.9 Hypothyroidism, unspecified; G20.A1 Parkinson's disease without dyskinesia, without mention of fluctuations; Z96.82 Presence of neurostimulator; Z87.891 Personal history of nicotine dependence
CPT/HCPCS: 36415; 51702; 80048; 81001; 85025; 87086; 99283

== ENCOUNTER 2025-06-30 01:21 | Day surgery (SDC) | payer MEDICARE, OTHER, SELFPAY ==
--- OUTSIDE RECORDS SUMMARY | 2024-07-24 03:00 | XMS_ITS ---
Author Organization [facility] Address [address] [place] [address] Care Team Providers Care Roofing Plant Supervisor Name Role Phone Dr. Leonid Ross Primary Care Provider [id number] Migration, Provider Unavailable Unavailable REASON FOR VISIT EMR-Rikki Encounters Encounter Location Date Provider Diagnosis [facility] [address] [place] [address] 07/24/2024 Provider Migration Plan Of Treatment Medication Medication Name Sig Start Date Stop Date Notes Carbidopa-Levodopa ER 50-200 MG Tablet Extended Release 1 Oral four times a day; Duration: 30 05/06/2023 05/11/2024 ,discontinuereason:D iscontinued Linzess 145 MCG Capsule 1 Oral every day ; Duration: 30 01/17/2021 07/15/2021 Aspirin Adult Low Strength 81 MG Tablet Delayed Release 1 Oral every day; Duration: 0 01/16/2021 05/27/2022 ,discontinuereason:D iscontinued Hyoscyamine Sulfate 0.125 MG Tablet Disintegrating 1 Oral four times a day; Duration: 0 03/16/2024 03/16/2024 Sinemet oral; Duration: 0 07/27/2021 07/26/2021 ,discon tinuereason:D iscontinued *Pick strength-form from [employer] for eRX* Qnnzafcvg-Tdxifken-Yjwpisx one 50-200-200 mg Tablet 1 Oral every night at bedtime; Duration: 0 01/16/2021 05/05/2023 ,discontinuereason:D iscontinued Doxycycline Monohydrate 100 MG Capsule 1 Oral two times a day; Duration: 04/01/2024 04/21/2024 Sildenafil Citrate 25 MG Tablet Oral; Duration: 02/21/2023 04/01/2023 ,discontinuereason:R efilled Cipro 500 MG Tablet 1 Oral two times a day; Duration: 04/22/2024 05/05/2024 Tadalafil 5 MG Tablet 1 Oral every day; Duration: 05/08/2023 11/03/2023 Tamsulosin HCl 0.4 MG Capsule 1 Oral two times a day; Duration: 04/22/2024 05/21/2024 Sildenafil Citrate 50 MG Tablet Oral; Duration: 04/22/2024 05/31/2024 Methocarbamol 500 MG Tablet 1 Oral four times a day; Duration: 05/06/2023 05/06/2023 stopped d/t not helping with muscle spasms.,discontinuer bart:Discontinued Levothyroxine Sodium 137 MCG Tablet 1 Oral every morning; Duration: 09/19/2022 05/05/2023 increased to 150mcg,discontinuere ason:Discontinued Viagra 25 MG Tablet 1 Oral every day; Duration: 04/19/2022 12/22/2022 changed to tadalafil,discontinu ereason:Discontinued Myrbetriq 50 MG Tablet Extended Release 24 Hour Oral; Duration: 05/21/2022 12/22/2022 ,discontinuereason:D iscontinued Entacapone 200 MG Tablet 1 Oral four sarita es a day; Duration: 05/06/2023 06/04/2023 Scopolamine 1 MG/3DAYS Patch 72 Hour 1 Transdermal; Duration: 09/18/2023 09/24/2023 Carbidopa-Levodopa 25-100 MG Tablet 1 Oral four times a day; Duration: 05/06/2023 05/11/2024 ,discontinuereason:D iscontinued Azithromycin 250 MG Tablet Oral; Duration: 08/12/2023 Cipro 250 MG Tablet 1 Oral two times a day; Duration: 02/18/2022 03/12/2022 Levothyroxine Sodium 150 MCG Tablet 1 Oral every morning; Duration: 10/27/2023 05/11/2024 ,discontinuereason:D iscontinued Gocovri 137 MG Capsule Extended Release 24 Hour 2 Oral every day; Duration: 0 05/07/2021 04/07/2023 ,discontinuereason:D iscontinued Azilect 0.5 MG Tablet 1 Oral every day; Duration: 0 01/16/2021 04/07/2023 ,discontinuereason:D iscontinued Tadalafil oral; Duration: 0 05/21/2022 12/22/2022 ,discon tinuereason:R efilled *Pick strength-form from [facility] for eRX* Sulfamethoxazole-Trimethop rim 800-160 MG Tablet 1 Oral two times a day; Duration: 07/02/2024 07/22/2024 Amantadine HCl 100 MG Tablet 1 Oral three times a day; Duration: 05/06/2023 06/04/2023 Sinemet 25-100 MG Tablet 2 Oral two time s a day; Duration: 10/30/2021 04/07/2023 ,discontinuereason:D iscontinued Next Appt Details Provider Name:Bindu Fernandez , 05/16/2026 09:45:00 AM, [address] [facility], [place], [address], [id number] Progress Notes * Dion FAROOQ ADOB:[birth year] (69 yo M)Acc No.[id number]:07/24/2024 Patient: [place] CHEYENNE Dion Charmaine :1955 A ge:68 Y S ex:Male Phone: Address:[address] [place] [address] [address], [place], [address] * Refills Stop Levothyroxine Sodium Tablet, 150 MCG, Oral, 30, 1, every morning, 30 Stop Tamsulosin HCl Capsule, 0.4 MG, Oral, 90, 1, every day, 90 Stop Cipro Tablet, 250 MG, Oral, 14, 1, two times a day, 7 Stop Hyoscyamine Sulfate Tablet Disintegrating, 0.125 MG, Oral, 20, 1, four times a day, 0 Stop Tamsulosin HCl Capsule, 0.4 MG, Oral, 90, 1, every day, 90 Stop Aspirin Adult Low Strength Tablet Delayed Release, 81 MG, Oral, 1, every day, 0 Stop Carbidopa-Levodopa ER Tablet Extended Release, 50-200 MG, Oral, 120, 1, four times a day, 30 Stop Cipro Tablet, 500 MG, Oral, 28, 1, every 12 hours, 14 Stop Cipro Tablet, 500 MG, Oral, 28, 1, two times a day, 14 Stop Tamsulosin HCl Capsule, 0.4 MG, Oral, 90, 1, every day, 90 Stop Tamsulosin HCl Capsule, 0.4 MG, Oral, 30, 1, every day, 30 Stop Tamsulosin HCl Capsule, 0.4 MG, Oral, 30, 1, every day, 30 Stop Amantadine HCl Tablet, 100 MG, Oral, 60, 1, two times a day, 30 Stop Azithromycin Tablet, 250 MG, Oral, 6, 0 Stop Carbidopa-Levodopa Tablet, 25-100 MG, Oral, 120, 1, four times a day, 30 Stop Cipro Tablet, 250 MG, Oral, 60, 1, two times a day, 30 Stop Entacapone Tablet, 200 MG, Oral, 120, 1, four times a day, 30 Stop Levothyroxine Sodium Tablet, 137 MCG, Oral, 90, 1, every morning, 90 Stop Methocarbamol Tablet, 500 MG, Oral, 1, four times a day, 0 Stop Sildenafil Citrate Tablet, 50 MG, Oral, 10, 10 Stop Tamsulosin HCl Capsule, 0.4 MG, Oral, 60, 1, two times a day, 30 Stop Amantadine HCl Tablet, 100 MG, Oral, 90, 1, three times a day, 30 Stop Levothyroxine Sodium Tablet, 137 MCG, Oral, 1, every morning, 0 Stop Levothyroxine Sodium Tablet, 137 MCG, Oral, 90, 1, every morning, 90 Stop Tadalafil, oral, 0 Stop Azilect Tablet, 0.5 MG, Oral, 1, every day, 0 Stop Cipro Tablet, 250 MG, Oral, 46, 1, two times a day, 23 Stop Tamsulosin HCl Capsule, 0.4 MG, Oral, 90, 1, every day, 90 Stop Gocovri Capsule Extended Release 24 Hour, 137 MG, Oral, 2, every day, 0 Stop Amantadine HCl Tablet, 100 MG, Oral, 1, two times a day, 0 Stop Gbthmdvbo-Qzjjfpqe-Oensaicmgo Tablet, 50-200-200 mg, Oral, 1, every night at bedtime, 0 Stop Levothyroxine Sodium Tablet, 137 MCG, Oral, 90, 1, every morning, 90 Stop Sinemet Tablet, 25-100 MG, Oral, 30, 2, two times a day, 0 Stop Tamsulosin HCl Capsule, 0.4 MG, Oral, 30, 1, every day, 30 Stop Linzess Capsule, 145 MCG, Oral, 30, 1, every day, 30 Stop Levothyroxine Sodium Tablet, 137 MCG, Oral, 90, 1, every morning, 90 Stop Sildenafil Citrate Tablet, 25 MG, Oral, 10, 10 Stop Levothyroxine Sodium Tablet, 150 MCG, Oral, 30, 1, every morning, 30 Stop Sinemet Tablet, 25-100 MG, Oral, 120, 1, four times a day, 30 Stop Tamsulosin HCl Capsule, 0.4 MG, Oral, 60, 1, two times a day, 30 Stop Myrbetriq Tablet Extended Release 24 Hour, 50 MG, Oral, 0 Stop Scopolamine Patch 72 Hour, 1 MG/3DAYS, Transdermal, 3, 1, 7 Stop Sinemet Tablet, 25-100 MG, Oral, 1, four times a day, 0 Stop Tamsulosin HCl Capsule, 0.4 MG, Oral, 90, 1, every day, 90 Stop Viagra Tablet, 25 MG, Oral, 10, 1, every day, 0 Stop Levothyroxine Sodium Tablet, 150 MCG, Oral, 30, 1, every morning, 30 Stop Hyoscyamine Sulfate Tablet Disintegrating, 0.125 MG, Oral, 20, 1, four times a day, 0 Stop Levothyroxine Sodium Tablet, 150 MCG, Oral, 30, 1, every morning, 30 Stop Tadalafil Tablet, 5 MG, Oral, 30, 1, every day, 30 Stop Amantadine HCl Tablet, 100 MG, Oral, 60, 1, two times a day, 30 Stop Sinemet, oral, 0 Stop Doxycycline Monohydrate Capsule, 100 MG, Oral, 42, 1, two times a day, 21 Stop Levothyroxine Sodium Tablet, 150 MCG, Oral, 90, 1, every day, 90 Stop Levothyroxine Sodium Tablet, 137 MCG, Oral, 90, 1, every morning, 90 Stop Levothyroxine Sodium Tablet, 150 MCG, Oral, 30, 1, every morning, 30 Stop Tadalafil Tablet, 5 MG, Oral, 1, every day, 0 Stop Entacapone Tablet, 200 MG, Oral, 1, every night at bedtime, 0 Stop Levothyroxine Sodium Tablet, 150 MCG, Oral, 30, 1, every morning, 30 Stop Sinemet Tablet, 25-100 MG, Oral, 120, 2, two times a day, 30 Stop Sulfamethoxazole-Trimethoprim Tablet, 800-160 MG, Oral, 42, 1, two times a day, 21 Stop Tamsulosin HCl Capsule, 0.4 MG, Oral, 90, 1, every day, 90 Subjective: * Chief Complaints: * E MR-Rikki Objective: Past Vitals:* 07/02/2024 BP: 120/76 mm Hg, HR: 86 /mi n, Oxygen sat %: 99 %, Wt: 186.38 lbs, Wt-k.54 kg * 05/03/2024 BP: 122/70 mm Hg, HR: 72 /mi n, Oxygen sat %: 98 % * * Date:
--- OUTSIDE RECORDS SUMMARY | 2024-07-25 03:00 | XMS_ITS ---
Author Organization [facility] Address [address] [place] [address] Care Team Providers Care Sewage Plant Operator Name Role Phone Dr. Leonid Ross Primary Care Provider [phone] Migration, Provider Unavailable Unavailable Allergies No Known Allergies REASON FOR VISIT [facility] Medications Medication SIG (Take, Route, Frequency, Duration) Notes Start Date End Date Status Multivitamin oral; Duration: 0 *Pick strength-form from [employer] for eRX* 01/16/2021 Active Levothyroxine Sodium 150 MCG Tablet 1 Oral every morning; Duration: 90 05/03/2024 10/29/2024 Active Social History Social History Additional Details Category Social Info Options Details Migrated Social History Migrated Social History Tobacco history:Never smoker Encounters Encounter Location Date Provider Diagnosis [facility] [address] [place] [address] 07/25/2024 Provider Migration Plan Of Treatment Next Appt Details Provider Name:Bindu Fernandez , 05/16/2026 09:45:00 AM, [facility], [place], [address], [phone] Progress Notes * Dion FAROOQ ADOB:[birth year] (69 yo M)Acc No.[id number]:07/25/2024 Patient: [place] Dion QUINN :1955 A ge:68 Y S ex:Male Phone: Address:[address], [place], [address] Subjective: * Chief Complaints: * E MR-Rikki * Surgical History: Cardiovascular stress test using maximal or submaximal treadmill or bicycle exercise, continuous edel 12/22/2015 Colonoscopy ,notes : rectal poylp removed repeat 3-5 years 01/28/2012 Cystoscopy ,notes : Dr. Arellano 05/31/2022 cholecystecomy ,notes : Laparoscopic farhat with cholangiogram. Post op dx: chronic calculous cholecystitis. Completed by Dr. Hicks. 02/05/24 * Social History: M igrated Social History: M igrated Social History: Tobacco history:Never smoker. * Medications: T akingLevothyroxine Sodium 150 MCG Tablet 1 Oral every morning , stop date 10/29/2024Multivitamin oral , Notes to Pharmacist: *Pick strength-form from [employer] for eRX*Taking Levothyroxine Sodium 150 MCG Tablet 1 Oral every morning , stop date 10/29/2024Taking Multivitamin oral , Notes to Pharmacist: *Pick strength-form from [facility] for eRX* * Allergies: N .K.D.A. Objective: Past Vitals:* 07/02/2024 BP: 120/76 mm Hg, HR: 86 /mi n, Oxygen sat %: 99 %, Wt: 186.38 lbs, Wt-k.54 kg * 05/03/2024 BP: 122/70 mm Hg, HR: 72 /mi n, Oxygen sat %: 98 % * * Date:
--- NOTE | 2025-06-22 07:02 | PM.HPGS ---
History of Present Illness History of Present Illness Consent: Risks, benefits, and alternatives have been discussed and questions answered. Patient agrees to proceed with procedure. Chief complaint: bladder stone Narrative: Dion Farooq is a 69 year old male with history of BPH and prior bladder stones. Recenlty spontaneously passed bladder stone, now left with 8mm residual stone in bladder. Review of Systems Review of Systems: All systems reviewed & are unremarkable except as noted in HPI and below PMFSH Past Medical History Medical History Bladder stones s/p extraction 01/13/25; Dr Bailey Hypothyroidism Parkinson disease Surgical History Surgical History H/O lithotripsy 01/13/25; Dr Bailey Status post cystoscopy 01/13/25; Dr Bailey S/P deep brain stimulator placement Social History Social History Smoking packs per day: 0.25 Smoking cigarettes per day: 5.0 Years smoked: 5 Smoking pack-years: 1.25 Smoking status: Former smoker Tobacco type: cigarettes Smoking end date: 02/22/82 Alcohol intake: current Drinks per week: 2 Living arrangements: with family Additional living arrangements comments: Spiritual care concerns: No Meds Home Medications and Allergies Home Medications ?Medication ?Instructions ?Recorded ?Confirmed ?Type ascorbic acid (vitamin C) 500 mg 500 mg PO DAILY 12/29/24 01/13/25 History capsule,extended release Held on 01/13/25. Instructions: Resume on 01/15/25. cholecalciferol (vitamin D3) 125 125 mcg PO DAILY 12/29/24 01/13/25 History mcg (5,000 unit) capsule cyanocobalamin (vitamin B-12) 500 500 mcg PO DAILY 12/29/24 01/13/25 History mcg tablet levothyroxine 150 mcg tablet 150 mcg PO QAM 12/29/24 01/13/25 History multivitamin (Daily Multi-Vitamin 1 tablet PO DAILY 12/29/24 01/13/25 History tablet) selegiline HCl 5 mg capsule 5 mg PO BID 12/29/24 01/13/25 History tamsulosin 0.4 mg capsule 0.4 mg PO BID 12/29/24 01/13/25 History ciprofloxacin HCl 500 mg tablet 500 mg PO Q12H #14 tabs 01/13/25 Rx hydrocodone 5 mg-acetaminophen 325 1 - 2 tablet PO Q6H PRN pain #20 01/13/25 Rx mg tablet tabs Allergies Allergy/AdvReac Type Severity Reaction Status Date / Time No Known Allergies Allergy Verified 01/14/25 20:05 Exam Const: General: no acute distress Resp: Effort & Inspection: normal respiratory effort GI: Inspection: non-distended GI Palp: No abdominal tenderness and No Guarding due to palpation present (GI) Auscultation: normal bowel sounds Assessment and Plan Assessment and plan (1) BPH loc w urin obs/LUTS: Code(s): N40.1 - Benign prostatic hyperplasia with lower urinary tract symptoms Status: Acute Assessment and Plan: Cystoscopy with laser lithotripsy, bladder stone extraction
[2025-06-22 09:51] VITALS: BMI 28.1
--- NOTE | 2025-06-22 10:00 | PC.NURSE ---
[facility] has started construction of its new state of the art ER which will open Spring 2026. With this, we anticipate parking may be a challenge for some our surgical patients and families. Parking spaces are limited but are available for all Surgical, obstetrics, and ER patients sharing this lot. If you arrive and find you are having a hard time finding a parking space, please note that we understand the challenges, please drive around the hospital and park near Hospital Entrance 1. When you enter this entrance, you can ask a volunteer to direct or take you back to the surgical waiting area to check in. We appreciate everyone?s understanding of these expected challenges while we build for your future. Report to the Outpatient Waiting Room, entrance under the green pavilion located off [address], at time _1145_ on date _[phone]_. Planned Procedure Time: _145pm_.? Time changes happen often and if your time is changed the preop area will call you the afternoon before. - You and your visitor will be asked to self-screen and do not enter if you have any COVID symptoms. Please call surgeon if you need to reschedule. - A mask is optional within the hospital at this time. Patients may have clear liquids (water, carbonated beverages, clear teas, apple juice) until 3 hours prior to surgery with a maximum of 20 ounces. - No food from midnight until time of surgery and no smoking, or chewing tobacco (or any form of nicotine). No chewing gum, candy or mints. Take only the following medications with a SIP of water on the morning of surgery: ___Selegiline, Levothyroxine____ DO NOT STOP ANY OF YOUR OTHER PRESCRIPTION MEDICATIONS PRIOR TO SURGERY EXCEPT THE FOLLOWING Hold all vitamins and supplements for 3 days per anesthesiologist. Medications to discontinue per physician Date to take last dose Please no make-up, nail syriac, hairspray, perfume, deodorant, or body powder the day of surgery.? No jewelry (including any body piercings) or valuables the day of surgery, leave them at home.? Please take a shower or bath the night before, or the morning of, surgery with an antibacterial soap.? Wear comfortable, loose fitting clothing.? - Jewelry must be removed prior to entering the operating room.? Rings and piercings that are not removed may be cut off. - The hospital will not accept responsibility for valuables.? - Please leave all valuables, including medications, at home the day of surgery. If you are going home after surgery, a licensed concrete mixing truck driver must drive you home.? - NO public transportation without another adult if you receive anesthesia. - We recommend that an adult stay with you for 24 hours following discharge. - We also recommend that you do not drive, make important decision, drink alcoholic beverages, or take any drugs that were not prescribed by your health care provider for at least 24 hours after your discharge time. Follow any additional instructions given to you from your surgeon. Telephone instructions given to _Manfred and Mita____and asked if any additional questions and then verbalized understanding. Patient advised to call surgeon office or pre surgery nurse liaison [phone] if any additional questions.
[2025-06-30] VITALS (7 sets, daily range): BP systolic 102–149; BP diastolic 70–95; PULSE 67–78; RESP 12–16; TEMP 36.2–36.8; O2SAT 98–100
--- NOTE | 2025-06-30 06:14 | WPDHPUPDATE1 ---
History and Physical Update Update Date/Time: 06/30/25 06:14 History and Physical has been reviewed, including an updated exam of the patient. There are NO changes in the patient's condition. Risks, benefits, and alternatives have been discussed and questions answered. Patient agrees to proceed with procedure.
--- NOTE | 2025-06-30 12:45 | WPDANESEPP ---
Anes - Eval Pre Procedure Procedure: Operation Date: 06/30/25 14:30 Proposed Procedures p Cystoscopy, Laser Lithotripsy with Bladder Stone Extraction - Dillon Bailey MD Date/Time: 06/30/25 12:45 Pre Op Diagnosis: bladder stone Patient Data Age: 69 Gender: M Height: 1.73 m Weight: 84 kg Allergies Allergy/AdvReac Type Severity Reaction Status Date / Time No Known Allergies Allergy Verified 06/22/25 09:49 Home Medications ?Medication ?Instructions ?Recorded ?Confirmed ?Type ascorbic acid (vitamin C) 500 mg 500 mg PO DAILY 12/29/24 06/22/25 History capsule,extended release cholecalciferol (vitamin D3) 125 125 mcg PO DAILY 12/29/24 06/22/25 History mcg (5,000 unit) capsule cyanocobalamin (vitamin B-12) 500 500 mcg PO DAILY 12/29/24 06/22/25 History mcg tablet levothyroxine 150 mcg tablet 150 mcg PO QAM 12/29/24 06/22/25 History multivitamin (Daily Multi-Vitamin 1 tablet PO DAILY 12/29/24 06/22/25 History tablet) selegiline HCl 5 mg capsule 5 mg PO BID 12/29/24 06/22/25 History tamsulosin 0.4 mg capsule 0.4 mg PO BID 12/29/24 06/22/25 History Patient hx anesthesia problems: none Family hx anesthesia problems: none Results Review: All pre-operative results and documents have been reviewed as part of the pre-operative evaluation. [facility] Past Medical History Medical History Bladder stones s/p extraction 01/13/25; Dr Bailey Hypothyroidism Parkinson disease Surgical History Surgical History H/O lithotripsy 01/13/25; Dr Bailey Status post cystoscopy 01/13/25; Dr Bailey S/P deep brain stimulator placement Social History Social History Smoking packs per day: 0.25 Smoking cigarettes per day: 5.0 Years smoked: 10 Smoking pack-years: 2.50 Smoking status: Former smoker Tobacco type: cigarettes Smoking end date: 06/22/82 Alcohol intake: current Drinks per week: 2 Substance use: never Living arrangements: with family Additional living arrangements comments: Spiritual care concerns: No Exam Day of Procedure 06/30/25 12:45 Patient weight: overweight
[2025-06-30] MEDS: LACTATED RINGERS 1,000 ML 30 ML IV CONT (13:20)
--- NOTE | 2025-06-30 14:13 | P.PNAN_ITS ---
Anes - Eval Final PreProcedure Day of Procedure 06/30/25 14:13 Patient weight: overweight Heart: regular rate and rhythm Lungs: clear to auscultation Airway: Mallampati scale class II Neurological: other (slow to answer) Last oral intake: 4 hours ASA classification: III Emergent: no Anesthetic plan: proceed Anesthesia type and monitoring: general LMA and standard monitoring Results Review: All pre-operative results and documents have been reviewed as part of the pre- operative evaluation. Informed Consent: The patient's anesthetic plan and its attendant risks and benefits were discussed with the patient/family/POA. Questions were solicited and answers provided to the satisfaction of the patient/family/POA.
[2025-06-30] MEDS: ceFAZolin 2 GM in SODIUM CHLORIDE 0.9% IV 50 ML 100 ML IVPB (14:25)
--- NOTE | 2025-06-30 14:49 | S_PTH ---
PATIENT: Dion Farooq LOC: [facility] U#:[id number] AGE/SX: 69/M ROOM: RE06/30/[address]: Dillon Bailey MD : 1955 BED: DIS: 06/30/2025 SPEC #: [id number] RECD: 07/01/25 08:06 STATUS: TARSHA REQ #: [id number] SHAHRAM: 06/30/25 14:[address]: Dillon Bailey DEPT: [facility] Surgical RECD BY: Lore Joseph ENTERED: 07/01/25 08:06 SP TYPE: Surgical OTHR DR: Leonid Ross MD Tissues: A - Stone Procedures: Gross Exam Level 1 Crystalline Analysis
--- NOTE | 2025-06-30 15:14 | W.PM.PROC2 ---
Procedure Note - Detailed Date of Procedure 06/30/25 Pre-op Diagnosis bladder stone Post-op Diagnosis Same Procedure Performed Cystoscopy, urethral dilatation, bladder stone extraction Surgeon Dillon Bailey MD Anesthesia General Description of Procedure Patient is brought the operative suite was prepped draped in routine sterile fashion while in dorsal lithotomy position after the uneventful induction of a general anesthetic. I attempted cystoscopy with a 21 F rigid cystoscope he has some fossa navicular stricture. I dilated that to 24 F with Joaquin sounds and then placed the 21 F rigid cystoscope. He has moderate lateral lobe hyperplasia with a 2.5 cm prostatic urethra without median lobe enlargement. There are no additional strictures of the more proximal urethra. He has a single stone in his bladder that is somewhat oblong shape. With manipulation of the stone into a lengthwise orientation I was able to extracted intact using a 1.9 F disposable stone basket. Scopes wires removed. The patient tolerated the procedure well and was taken to the recovery room in good condition. Drains No Packing No Pathology Yes Complications No immediate complications
--- OUTSIDE RECORDS SUMMARY | 2025-06-30 16:10 | XMS_ITS | Clinical Summary ---
Author Organization [facility] Address [address] [place] [address] Care Team Providers Care Debt Management Counselor Name Role Phone Tayo Ross MD Primary Care Provider [phone] [facility],non-owned Affiliates and Associated Physician Practices is amultiple site organization consisting of ambulatory clinics and hospital sitesin [place], [place], [place] and [place]. This disclosure is being madepursuant to the Care Everywhere program and may not contain all information available regarding this patient. Last updated 18.[facility] Allergies No known active allergies Medications * [...] (AZILECT) 1 MG tabletIndicatio ns:PD (Parkinson's disease) ([facility]) Patient to take .5 tablet daily 45 tablet 3 0 Active carbidopa-levod opa CR (SINEMET CR) 50-200 MG tabletIndicatio ns:PD (Parkinson's disease) ([facility]) Take 1 tablet by mouth at bedtime 90 tablet 3 0 Active levothyroxine (SYNTHROID) 137 MCG tablet Take 137 mcg by mouth once daily 1 Active rOPINIRole (REQUIP) 0.5 MG tabletIndicatio ns:RLS (restless legs syndrome),PD (Parkinson's disease) ([facility]) Take 1 (one) tablet by [...] on file Legal Sex Male 5:26 PM [employer]PER[employer] Gender Identity Not on file Sexual Orientation Not on file Last Filed Vital Signs Vital Sign Reading Time Taken Comments Blood Pressure 112/72 10/12/2020 11:07 AM [employer] OPER[employer] Pulse 81 10/12/2020 11:07 AM [employer] OPERATOR Temperature 36.4 C (97.5 F) 10/12/2020 11:07 AM [employer] OPERATOR Respiratory Rate - - Oxygen Saturation 98% 10/12/2020 11:07 AM [employer] D[employer] OPERATOR Inhaled Oxygen Concentration - - Weight 78.7 kg (173 lb 9.6 oz) 10/12/2020 11:07 AM [employer] D[employer] OPERATOR Height 172.7 cm (5' 8) 10/12/2020 11:07 AM [employer] D[employer] OPERATOR Body Mass Index 26.4 10/12/2020 11:07 AM [employer] OPERATOR Plan of Treatment Health Maintenance Due Date Last Done Comments COLOGUARD (AGES 45-75) - COL ON CA SCREENING 1955 COLON MONITORING 1955 COLONOSCOPY - COLON CA SCREENING 1956 CT COLONOGRAPHY - COLON CA SCREENING 1955 Colorectal Cancer Screening 1955 FIT - COLON CA SCREENING 1955 FLEX SIG - COLON CA SCREENING 1955 LIPID TESTING 1955 MEDICARE AWV 12 MONTHS 1955 HEPATITIS C SCREENING 11/05/1974 DTAP/TDAP/TD VACCINES (1 - Tdap) 11/10/1975 PNEUMOCOCCAL VACCINE 50+ (1 of 1 - PCV) 2006 ZOSTER VACCINE (2 of 2) 04/02/2019 02/05/2019 SCREENING FOR DIABETES 10/12/2020 AAA SCREENING 2021 DEPRESSION SCREENING 08/25/2024 COVID-19 VACCINE (1 - 2023-2 5 season) 2025 INFLUENZA VACCINE (#1) 2025 Respiratory Syncytial Virus (RSV) Vaccine Pt: [...] on patient's age to complete this topic Insurance [employer]IC[employer] [place] SELF PAY NO INSURANCE Member Subscriber Plan / Payer (Ef fective for All Dates) Name:Oseas Dion Shearer Member ID:Not on file Relation to Subscriber:Not on file Name:OSEASDION MANFRED Subscriber ID:Not on file (Home) Address: [address] [place] [id number] Payer ID:Not on file Group ID:Not on file Type:Self Pay Address: [place], [place] Care Teams Debt Management Counselor Relationship Specialty Start Date End Date Tayo Ross MD [address] [place] [address] PCP - General 12/20/16
--- OUTSIDE RECORDS SUMMARY | 2025-06-30 16:10 | XMS_ITS | Patient Health Record ---
Author Organization [facility] dicine Address [address] [place] [address] Care Team Providers Care Transformer Assembler Name Role Phone Dr. Leonid Ross Primary Care Provider [phone] Manuel Nair Unavailable [phone] Bindu Eastman Unavailable [phone] Migration, Provider Unavailable Unavailable Allergies No Known Allergies Results Component Value Reference Range Flag Notes T4 Free Reviewed date:03/29/2025 02:00:30 PM Interpretation: Performing Lab: Notes/Report: Test Performed by: [place] [id number] Nuclear Medicine Tech: Herminio Duvall DO T4 Free 1.18 0.60-1.70 ng/dL CBC w Auto Diff Reviewed date:03/29/2025 02:00:30 PM Interpretation: Performing Lab: Notes/Report: Test Performed by: [address] [id number] Nuclear Medicine Tech: Herminio Duvall DO WBC 5.8 4.0-11.7 K/mcL RBC 4.50 4.28-5.56 x10*6/mcL Hgb 14.8 13.0-17.0 g/dL Hct 42.5 38.1-48.9 % MCV 94.5 83.4-98.1 fL MCH 32.9 27.0-34.2 pg MCHC 34.8 31.8-35.3 g/dL RDW 12.9 12.0-16.4 % Platelets 202 149-393 K/mcL MPV 9.7 7.0-11.0 fL Neutro Auto 63.0 45.3-79.0 % Lymph Auto 25.6 11.8-45.9 % [place] Auto 6.5 4.4-12.0 % Eosinophil Auto 4.3 0.0-6.3 % Basophil Auto 0.6 0.2-1.6 % Neutro Absolute 3.6 2.4-8.4 x10*3/mcL Lymph Absolute 1.5 0.8-3.7 x10*3/mcL [place] Absolute 0.4 0.3-1.1 x10*3/mcL Eos Absolute 0.2 0.0-0.5 x10*3/mcL Comprehensive Metabolic Pane l Reviewed date:03/29/2025 02:00:30 PM Interpretation: Performing Lab: Notes/Report: Test Performed by: [place] [address] Nuclear Medicine Tech: Herminio Duvall DO Glucose Lvl 90 74-109 mg/dL ADA risk stratification for diabetes <100 mg/dL = Normal 100-125 mg/dL = Increased risk for future diabetes >=126 mg/dL = Diabetes, if on more than one testing occasion BUN 14 7-25 mg/dL Creatinine Lvl 0.93 0.70-1.30 mg/dL eGFR CKD-EPI 89 >=90 mL/min/1.73 m2 L The CKD-EPI equation is validated in individuals [...] CKD (Kidney Int Suppl 2013;3:1-150) Calcium Lvl 9.4 8.6-10.3 mg/dL Sodium Lvl 139 136-145 mmol/L Potassium Lvl 4.2 3.5-5.1 mmol/L Chloride Lvl 105 98-107 mmol/L CO2 28 21-31 mmol/L Anion Gap 6.5 <=16.0 mmol/L Alk Phos 85 34-104 unit/L Bilirubin Total 0.5 0.3-1.0 mg/dL Albumin Lvl 4.1 3.5-5.2 g/dL Protein Total 6.6 6.4-8.9 g/dL Albumin/Globulin Ratio 1.6 1.1-2.5 ALT 12 7-52 unit/L AST 13 13-39 unit/L Thyroid Stimulating Hormone Reviewed date:03/29/2025 02:00:30 PM Interpretation: Performing Lab: Notes/Report: Test Performed by: [place] [address] Nuclear Medicine Tech: Herminio Duvall DO TSH 1.86 0.45-5.33 mcIU/mL C-Reactive Protein Reviewed date:06/03/2025 01:18:25 PM Interpretation: Performing Lab: Notes/Report: Erythrocyte Sedimentation Ra te Reviewed date:06/03/2025 01:18:13 PM Interpretation: Performing Lab: Notes/Report: C-Reactive Protein Reviewed date:11/10/2024 08:07:37 AM Interpretation: Performing Lab: Notes/Report: add on Test Performed by: [place] [address] Nuclear Medicine Tech: Herminio Duvall DO CRP <0.1 0.0-1.0 mg/dL Erythrocyte Sedimentation Ra te Reviewed date:11/10/2024 08:07:37 AM Interpretation: Performing Lab: Notes/Report: Test Performed by: [place] [address] Nuclear Medicine Tech: Herminio Duvall DO ESR, Westergren 2 0-20 mm/hr Vitamin D 25 Hydroxy Reviewed date:11/03/2024 02:33:10 PM Interpretation: Performing Lab: Notes/Report: Test Performed by: [place] [address] Nuclear Medicine Tech: Herminio Duvall DO Vitamin D 25 OH 70 30-100 ng/mL Vitamin D25 Interpretation: Deficient: <= 20 ng/mL Insufficient: 21-29 ng/mL Sufficient: 30-100 ng/mL Upper Safety Limit: >100 ng/mL T4 Free Reviewed date:11/03/2024 02:33:10 PM Interpretation: Performing Lab: Notes/Report: Test Performed by: [place] [address] Nuclear Medicine Tech: Herminio Duvall DO T4 Free 1.13 0.60-1.70 ng/dL CBC w Auto Diff Reviewed date:11/03/2024 02:33:10 PM Interpretation: Performing Lab: Notes/Report: Test Performed by: [place] [address] Nuclear Medicine Tech: Herminio Duvall DO WBC 4.9 4.0-11.7 K/mcL RBC 4.61 4.28-5.56 x10*6/mcL Hgb 15.2 13.0-17.0 g/dL Hct 43.9 38.1-48.9 % MCV 95.3 83.4-98.1 fL MCH 33.0 27.0-34.2 pg MCHC 34.6 31.8-35.3 g/dL RDW 12.9 12.0-16.4 % Platelets 236 149-393 K/mcL MPV 9.4 7.0-11.0 fL Neutro Auto 51.6 45.3-79.0 % Lymph Auto 38.2 11.8-45.9 % [place] Auto 7.1 4.4-12.0 % Eosinophil Auto 2.3 0.0-6.3 % Basophil Auto 0.8 0.2-1.6 % Neutro Absolute 2.5 2.4-8.4 x10*3/mcL Lymph Absolute 1.9 0.8-3.7 x10*3/mcL [place] Absolute 0.3 0.3-1.1 x10*3/mcL Eos Absolute 0.1 0.0-0.5 x10*3/mcL Comprehensive Metabolic Pane l Reviewed date:11/03/2024 02:33:10 PM Interpretation: Performing Lab: Notes/Report: Test Performed by: [place] [address] Nuclear Medicine Tech: Herminio Duvall DO Glucose Lvl 98 74-109 [...] Interpretation: Performing Lab: Notes/Report: Test Performed by: [place] [id number] Nuclear Medicine Tech: Herminio Duvall DO TSH 1.76 0.45-5.33 mcIU/mL Vitamin B12 Reviewed date:11/03/2024 02:33:10 PM Interpretation: Performing Lab: Notes/Report: Test Performed by: [place] [id number] Nuclear Medicine Tech: Herminio Duvall DO Vitamin B12 Lvl 776 180-914 pg/mL Vitamin B12 Interpretation: Normal Range: 180-914 pg/mL Indeterminate: 140-180 pg/mL Deficient: <140 pg/mL XR ABD KUB Reviewed date:05/24/2025 08:31:38 PM Interpretation: Performing Lab: Notes/Report: [address] [place] [address] Two VIEW(s) OF THE ABDOMEN History: Bladder stone Comparison:None 2 views of the abdomen demonstrate a normal overall bowel gas pattern. No stones overlie either kidney. A rounded calcification overlies the central pelvis and likely represents a bladder stone. This measures approximately 1 cm in diameter. Surgical clips in the right upper quadrant suggest previous cholecystectomy. The bony elements are intact IMPRESSION: Probable bladder stone Ordered By: FADI BAILEY Interpreted By: Arie Feliciano MD, 05/24/2025 6:[address] ABD+PEL WO CON Reviewed date:06/02/2025 02:24:14 PM Interpretation: Performing Lab: Notes/Report: [address] [place] [address] PROCEDURE: CT ABD+PEL WO CON HISTORY: BPH with obstruction and lower urinary tract symptoms. TECHNIQUE: Helical CT of the abdomen and pelvis was performed without intravenous contrast. A dose lowering technique was used for this procedure, which may include, but is not limited to, dose reduction technique, automated exposure control, the use of iterative reconstruction, and ALARA (As Low As Reasonably Achievable) / Image Gently techniques. COMPARISON: 12/17/2024 CT abdomen pelvis without contrast FINDINGS CT ABDOMEN/PELVIS: Lower thorax: There is subsegmental atelectasis in the lower lobes. The heart is normal in size. Liver: The liver is normal in size. Liver density is within normal limits. Biliary tree: Cholecystectomy. There is no biliary ductal dilatation. Spleen: The spleen is normal in size. Pancreas: The pancreas is normal in size. There are no pancreatic calcifications. The pancreatic duct is not dilated. Adrenal glands: The adrenal glands are normal in size and shape. Kidneys: There is no hydronephrosis. No renal stones are seen. Lymph nodes: Abdomen: There is no abdominal adenopathy. Pelvis: There is no pelvic adenopathy. Vasculature: There is no abdominal aortic aneurysm. Atherosclerotic calcification is seen. Peritoneum/mesentery/omentum: There is no free fluid or free air. Subtle mesenteric haziness appears improving when compared to prior exams retrospectively and may be reactive. GI tract: There is no bowel obstruction. Diverticulosis without diverticulitis. Normal appendix. Pelvic urogenital structures:Bladder appears moderately distended. There is an 8 mm bladder stone, there has been a decrease in quantity and size of bladder stones since previous imaging. No bladder wall thickening or perivesicular inflammation. Prostate is mildly enlarged. There is a 4 mm calcification in the prostate. Body wall/Bones: There is a tiny umbilical hernia containing only fat. Small inguinal hernias containing only fat. Osteoarthritis of the hips. Spondylosis of the thoracic and lumbar spine. There is degenerative disc disease of L5 on S1 with vacuum disc phenomenon. Limitations: Evaluation of the solid parenchymal organs and vasculature is limited due to lack of intravenous contrast. James: (S/I) = series number / image number IMPRESSION: 1. Improvement in number of bladder stones from the prior exam. There is an 8 mm stone in the urinary bladder on today's study. 2. Redemonstration of mildly enlarged prostate. The attending radiologist has reviewed the image(s) and agrees with the content of this report. Ordered By: FADI BAILEY Interpreted By: Chanell Mccurdy MD, 06/02/2025 8:42 AM Reason For Referral Reason referral to urology- closest location possible. Diagnosis 1 Benign prostatic hyp erplasia with lower urinary tract symptoms, symptom details unspecified (N40.1) Referral Organization [facility] Referring Provider First Name Bindu Referring Provider Last Name Jaren Referring Provider Speciality Nurse Prac titioner Referred Provider Specialty Urology General Notes Kandis Smith 1 10/21/2023 02:32:30 PM BUILDING ENERGY RETROFIT TECHNICIAN >Faxed referral to [facility] of [facility] [phone], Kristy Feldman 09/14/2024 09:20:59 AM BUILDING ENERGY RETROFIT TECHNICIAN >Called to f/u and spoke with operator receptionist. Stated they had the referral and [...] Manfred doesn't hear from them today. P: [phone]., Nunu Damon 11/11/2024 09:03:46 AM CDT >Pt is seeing urology in November Referral Priority Routine Referral Appointment Date 08/08/2024 Medications Medication SIG (Take, Route, Frequency, Duration) Notes Start Date End Date Status Vitamin B12 100 MCG Tablet as directed Orally Active Multivitamin - Tablet 1 tablet Orally Once a day Active Selegiline HCl 5 MG Tablet 1 tablet with breakfast and lunch Orally Twice a day Active Vitamin D3 250 MCG (31034 UT) Capsule 1 capsule Orally Once a day Active Multivitamin oral; Duration: 0 *Pick strength-form from [employer] for eRX* 01/16/2021 Not-Taking Finasteride 5 MG Tablet 1 tablet Orally Once a day Not-Taking Tadalafil 5 MG Tablet 1/2 tablet Orally Once a day; Duration: 30 days 03/28/2025 09/24/2025 Active Levothyroxine Sodium 150 MCG Tablet 1 tablet in the morning on an empty stomach Orally Once a day; Duration: 90 days Active Sildenafil Citrate 50 MG Tablet 1 tablet as needed Orally Once a day; Duration: 10 days As needed 1hour prior to sexually activity Active Tamsulosin HCl 0.4 MG Capsule 1 capsule Orally twice a day; Duration: 30 days Active Sertraline HCl 25 MG Tablet 1 tablet Orally Once a day managed by [facility] neuro Not-Taking Carbidopa-Levodopa 25-100 MG Tablet 1 Oral twice a day; Duration: 30 days As needed managed by [employer] neuro managed by [facility] neuro Active Immunizations Vaccine Route Administration Date Status Comme [...] VFC Code: : Social History Social History Drug/Alcohol: Social Info Question Answer Notes AUDIT-C (Standard) Did you have a drink containing alcohol in the past year? Yes How often did you have a drink containing alcohol in the past year? 2 to 3 times a week (3 points) How many drinks did you have on a typical day when you were drinking in the past year? 1 or 2 drinks (0 point) How often did you have six or more drinks on one occasion in the past year? Never (0 point) Points 3 Interpretation Negative Additional Details Category Social Info Options Details Migrated Social History Migrated Social History Tobacco history:Never smoker Problems Problem Type SNOMED Code ICD Code Onset Dates Problem Status W/U Status Risk Notes Problem Dermatophytosis of nail (826004611) Dermatophytosis of nail (110.1) 017 Problem resolved confirmed Problem Neoplasm of uncertain behavior of skin (28034774) Neoplasm of uncertain behavior of skin (238.2) 019 Problem resolved confirmed Problem Hyperlipidemia (10152806) Other and unspecified hyperlipidemia (272.4) 016 Problem resolved confirmed Problem Otorrhea (61644178) Unspecified otorrhea (388.60) 017 Problem resolved confirmed Problem Acute sinusitis (disorder) (24871968) Other acute sinusitis (461.8) 017 Problem resolved confirmed Problem Acute bronchitis (45885232) Acute bronchitis (466.0) 017 Problem resolved confirmed Problem Prostatitis (3594410) Unspecified prostatitis (601.9) 016 Problem resolved confirmed Problem Seborrheic dermatitis (48439888) Other seborrheic dermatitis (690.18) 017 Problem resolved confirmed Problem Acne scars - mixed atrophic and hypertrophic (525221795) Other specified hypertrophic and atrophic condition of skin (701.8) 017 Problem resolved confirmed Problem Cough (57737792) Cough (786.2) 017 Problem resolved confirmed Problem Abnormal chest sounds (32615047325224) Abnormal chest sounds (786.7) 017 Problem resolved confirmed Problem Pneumococcal conjugate vaccination (095705959648457) Need for prophylactic vaccination against streptococcus pneumoniae (pneumococcus) (V03.82) 019 Problem resolved confirmed Problem Requires varicella vaccination (finding) (326058445) Need for prophylactic vaccination and inoculation against varicella (V05.4) 019 Problem resolved confirmed Problem Vaccine product containing only acellular Bordetella pertussis and Clostridium tetani and Corynebacterium diphtheriae antigens (medicinal product) (693771548) Diphtheria-tetanus- pertussis, combined [DTP] [DtaP] (V06.1) 018 Problem resolved confirmed Problem Tinea unguium (588418588) Tinea unguium (B35.1) 017 Problem resolved confirmed Problem Neoplasm of uncertain behavior of skin (24268121) Neoplasm of uncertain behavior of skin (D48.5) 019 Problem resolved confirmed Problem Leukopenia (15534083) Decreased white blood cell count, unspecified (D72.819) 022 Active confirmed Problem Hypothyroidism (80340231) Hypothyroidism, unspecified (E03.9) 023 Active confirmed Problem Mixed hyperlipidemia (420337824) Mixed hyperlipidemia (E78.2) 016 Problem resolved confirmed Problem Parkinson's disease (01077831) Parkinson's disease (G20) 021 Active confirmed Problem Acute pansinusitis (0834048) Acute pansinusitis, unspecified (J01.40) 017 Problem resolved confirmed Problem Acute upper respiratory infection (28787044) Acute upper respiratory infection, unspecified (J06.9) 017 Problem resolved confirmed Problem Acute bronchitis (92062472) Acute bronchitis, unspecified (J20.9) 017 Problem resolved confirmed Problem Cholelithiasis without obstruction (97571478) Calculus of gallbladder without cholecystitis without obstruction (K80.20) Active confirmed Problem Seborrheic dermatitis (27517419) Other seborrheic dermatitis (L21.8) 017 Problem resolved confirmed Problem Xerosis cutis (45684227) Xerosis cutis (L85.3) 017 Problem resolved confirmed Problem Pain of right knee region (finding) (312863544211026) Pain in right knee (M25.561) 017 Problem resolved confirmed Problem Low back pain (275757292) Low back pain (M54.5) 021 Problem resolved confirmed Problem Obstructive uropathy (3192348) Other obstructive and reflux uropathy (N13.8) Active confirmed Problem Prostatitis (3416883) Inflammatory disease of prostate, unspecified (N41.9) Active confirmed Problem Erectile dysfunction (disorder) (212068240) Male erectile dysfunction, unspecified (N52.9) Active confirmed Problem Other specified symptoms and signs involving the circulatory and respiratory systems (R09.89) 017 Problem resolved confirmed Problem Hematuria (95414898) Hematuria, unspecified (R31.9) Active confirmed Problem Electrocardiogram abnormal (041552120) Abnormal electrocardiogram [ECG] [EKG] (R94.31) 022 Active confirmed Problem Closed fracture of acromial end of clavicle (9306952) Displaced fracture of lateral end of right clavicle, initial encounter for closed fracture (S42.031A) 023 Problem resolved confirmed Problem History and physical examination, follow-up (008748435) Encounter for follow-up examination after completed treatment for conditions other than malignant neoplasm (Z09) 023 Problem resolved confirmed Problem Viral screening (801504053) Encounter for screening for other viral diseases (Z11.59) 022 Problem resolved confirmed Problem Nicotine dependence (95242705) Personal history of nicotine dependence (Z87.891) Problem resolved confirmed Problem Lower urinary tract symptoms due to benign prostatic hypertrophy (51095601193282) Benign prostatic hyperplasia with lower urinary tract symptoms (N40.1) Active confirmed Problem Elevated PSA (481437352) Elevated prostate specific antigen [PSA] (R97.20) 022 Active confirmed Problem Encounter for screening for COVID-19 (Z11.52) 022 Problem resolved confirmed Problem Chronic cough (09541908) Chronic cough (R05.3) 023 Active confirmed Vital Signs Heart Rate 78 /min 05/24/2025 Temperature 97.7 degrees Fahrenheit 05/24/2025 Respiratory Rate 16 /min 07/02/2024 Height-cm 165.1 cm 05/24/2025 Oximetry 96 % 05/24/2025 Blood pressure diastolic 68 mm Hg 05/24/2025 Weight-kg 86.68 kg 05/24/2025 Height 65.00 in 05/24/2025 Blood pressure systolic 110 mm Hg 05/24/2025 Weight 191.1 lbs 05/24/2025 BMI 31.8 kg/m2 05/24/2025 Encounters Encounter Location Date Provider Diagnosis [address] [address] 07/02/2024 Manuel Niar Inflammatory disease of prostate, unspecified N41.[address] [address] 09/14/2024 Dr. Leonid Ross Superficial laceration T14.8XXA and Benign prostatic hyperplasia with lower urinary tract symptoms, symptom details unspecified N40.[address] [address] 11/02/2024 Manuel Joanie Hypothyroidism, unspecified E03.9 ; Parkinson's disease with fluctuating manifestations, unspecified whether dyskinesia present G20.A2 ; Low energy R53.83 ; Other fatigue R53.83 and superintendent [employer] use of drug Z79.[address] [address] 03/28/2025 Dr. Leonid Ross Hypothyroidism, unspecified E03.9 ; Benign prostatic hyperplasia with lower urinary tract symptoms N40.1 and Other obstructive and reflux uropathy N13.[address] [address] 05/24/2025 [facility] Encounter for subsequent annual wellness visit (AWV) in Medicare patient Z00.00 ; Parkinson's disease G20 ; Male erectile dysfunction, unspecified N52.9 ; Benign prostatic hyperplasia with lower urinary tract symptoms N40.1 and Hypothyroidism, unspecified E03.[address] [address] 07/24/2024 Provider Migration [address] [address] 07/25/2024 Provider Migration [address] [address] 08/08/2024 Bindu Eastman Acute prostatitis N41.0 ; Benign prostatic hyperplasia with lower urinary tract symptoms, symptom details unspecified N40.1 and Elevated prostate specific antigen [PSA] R97.[address] [address] 11/03/2024 [facility] Other fatigue R53.[address] [address] 11/03/[address] [address] 11/10/[address] [address] 11/11/2024 Dr. Leonid Ross [address] [address] 03/07/2025 Dr. Leonid Ross [address] [address] 03/29/2025 Dr. Leonid Ross Assessments Encounter Date Diagnosis (ICD Code) Assessment Notes Treatment Notes Treatment Clinical Notes Section Notes 11/03/2024 Other fatigue (ICD-10 - R53.83) 03/28/2025 Hypothyroidism, unspecified (ICD-10 - E03.9) Condition stable. Please take the thyroid medicine on an empty stomach (often that is first thing in the morning) without any other medications. Check thyroid function with blood work at least annually if all is stable or 2 months after a medication change. 11/02/2024 Parkinson's disease with fluctuating manifestations, unspecified whether dyskinesia present (ICD-10 - G20.A2) 08/08/2024 Benign prostatic hyperplasia with lower urinary tract symptoms, symptom details unspecified (ICD-10 - N40.1) 09/14/2024 Superficial laceration (ICD-10 - T14.8XXA) 11/02/2024 Hypothyroidism, unspecified (ICD-10 - E03.9) 03/28/2025 Benign prostatic hyperplasia with lower urinary tract symptoms (ICD-10 - N40.1) 05/24/2025 Parkinson's disease (ICD-10 - G20) On sinamet and selegiline, following with neurology. Has DPS. 05/24/2025 Encounter for subsequent annual wellness visit (AWV) in Medicare patient (ICD-10 - Z00.00) AWV Instructions The patient's health risk assessment was reviewed during this visit. The patient's chart was reviewed and updated See scanned images from paperwork reviewed and completed today The following topics have been addressed/discuss ed at today's visit: All recommended screening services (as applicable) including infectious diseases, osteoporosis, diabetes and/or diabetes complications, glaucoma, cognitive impairment, hearing impairment, alcohol misuse, cancer screening Fall risk assessment Alcohol misuse Counseling (if applicable) Tobacco Cessation Counseling (if applicable) Immunizations. Reports pneumonia vaccine completion but none in chart. Vital Signs End of Life Care Patient was provided with a written copy of the care plan from today's visit to include topics of Fall prevention, Nutrition, Physical activity, Tobacco-use cessation, Social engagement, Weight loss, Cognition. PHQ-9 was administered today. 5 Mins spent discussing with the patient. 07/02/2024 Inflammatory disease of prostate, unspecified (ICD-10 - N41.9) 08/08/2024 Acute prostatitis (ICD-10 - N41.0) 08/08/2024 Elevated prostate specific antigen [PSA] (ICD-10 - R97.20) 05/24/2025 Male erectile dysfunction, unspecified (ICD-10 - N52.9) Uses tadalafil and sildenafil PRN 09/14/2024 Benign prostatic hyperplasia with lower urinary tract symptoms, symptom details unspecified (ICD-10 - N40.1) 11/02/2024 Low energy (ICD-10 - R53.83) 03/28/2025 Other obstructive and reflux uropathy (ICD-10 - N13.8) 11/02/2024 Other fatigue (ICD-10 - R53.83) Checking [...] but may consider based on further evaluation. 05/24/2025 Benign prostatic hyperplasia with lower urinary tract symptoms (ICD-10 - N40.1) Sees urology tomorrow, they are considering procedure for further control of BPH. 05/24/2025 Hypothyroidism, unspecified (ICD-10 - E03.9) Continue levothyroxine, recheck TSH/T4 yearly, stable and controlled. 11/02/2024 residential use of drug (ICD-10 - Z79.899) Plan Of Treatment Pending Test Test Name Order Date Vitamin B12 11/02/2024 Thyroxine (T4) Free, Direct, S 5 TSH 11/02/2024 CBC With Differential/Platelet 5 Vitamin D, 25-Hydroxy 11/02/2024 Comp. Metabolic Panel (14) 11/02/2024 Next Appt Details Provider Name:Bindu Fernandez , 05/16/2026 09:45:00 AM, [address] [place], [address], [phone] Insurance Providers Payer Name Payer Address Payer Phone Subscriber Number Group Number Insured Name Patient Relationship to Insured Coverage Start Date Coverage End Date NGS Medicare RHC [address] [place] [address] [id number] Dion Palacios Self - patient is the insured 2 [employer] [address] [address] [id number] Dion Palacios Self - patient is the insured 2 [facility] Medicare B [address] [place] [address] [id number] [place] lynch Self - patient is the insured 2 Medical (General) History Medical History History ICD Code Parkinson's disease G20 Hypothyroidism, unspecified E03.9 Male erectile dysfunction, unspecified N 52.9 Surgical History Surgery Date(Month/Year) Cardiovascular stress test [...] with extraction bladder stones. Dr. Bailey. 01/13/25 Cystoscopy with laser lithotripsy with e xtraction of bladder stones. 06/22/25
== END 2025-06-30 16:45 | disposition home or self-care (01) ==
PROVIDERS: PCP Pediatrics; Visit Provider Urology
PROC: (CPT 52352; principal; 2025-06-30 14:30)
DX: N21.0 Calculus in bladder (principal); N40.0 Benign prostatic hyperplasia without lower urinary tract symptoms
CPT/HCPCS: 52310; 82365; 88300; J0690; C1769; J1100; J2003; J2405; J2704; J3010; J7120